=== PATIENT | female | born 1965 | race Caucasian/White ===

== ENCOUNTER → 2023-02-22 | Outpatient (CLI) | payer BC, SELFPAY ==
[2023-02-22 15:20] LABS: Absolute Lymphocyte Count 1.83 X10^3/uL (0.83-4.51); Absolute Neutrophil Count 2.2 X10^3/uL (2.0-7.7); Basophil# 0.06 X10^3/uL; Basophil% 1.3 % (0-1); Eosinophils% 2.2 % (0-5); Hematocrit 39.9 % (37-47); Hemoglobin 12.8 g/dL (12.0-15.0); Lymphocyte # 1.83 X10^3/ul (0.83-4.51); Lymphocyte % 40.1 % (19-41); Mean Corp Hgb Conc 32.1 g/dL (32-36); Mean Corpuscular Hgb 29.7 pg (27.0-32.0); Mean Corpuscular Volume 92.6 fL (81-99); Mean Platelet Vol. 10.6 fl (6.2-12.0); Monocyte# 0.34 X10^3/uL; Monocyte% 7.5 % (0-10); NRBC Flagged by Analyzer 0 % (0-5); Neutrophil # 2.22 X10^3/uL (2.7-7.7); Neutrophil % 48.7 % (47-70); Platelet Count 317 K/mm3 (150-450); RBC Distribution Width CV 12.8 % (11.6-14.6); RBC Distribution Width SD 43.8 fl (35.1-43.9); Red Blood Count 4.31 M/mm3 (4.2-5.4); White Blood Count 4.6 K/mm3 (4.4-11.0)
[2023-02-22 16:00] LABS: ALB/GLOB Ratio 1.3 RATIO (0.9-2.4); AST(SGOT) 24 U/L (15-37); Alanine Aminotransfer ALT/SGPT 26 U/L (13-56); Albumin, Serum 4.1 g/dL (3.2-5.0); Alkaline Phosphatase 56 U/L (45-117); Anion Gap 5 (5-15); BUN 20 mg/dL (7-18); BUN/Creat Ratio 24.3 RATIO (10-20); Calcium,Total 9.1 mg/dL (8.5-10.1); Chloride 108 mmol/L (98-107); Cholesterol 214 mg/dL (200); Creatinine, Serum 0.82 mg/dL (0.55-1.02); EST Glomerular Filtration Rate 76 mL/min (>60); Est Glom Filt Rate - Afr Amer 92 mL/min (>60); Globulin 3.2 g/dL (2.2-4.2); Glucose 88 mg/dL (74-106); High Density Lipoprotein 76 mg/dL; Potassium 3.8 mmol/L (3.5-5.1); Protein, Total 7.3 g/dL (6.4-8.2); Sodium Level 140 mmol/L (136-145); Thyroid Stim Hormone (TSH) 1.83 uIU/mL (0.358-3.74); Triglycerides 49 mg/dL; Very Low Density Lipoprotein 10 mg/dL (5-40)
[2023-02-22 16:05] LABS: Hemoglobin A1c 5.5 % (3.8-5.6)
== END | disposition home or self-care (01) ==
LOC: MFPLAB 11:57
PROVIDERS: Visit Provider Family Medicine
DX: Z13.0 Encounter for screening for diseases of the blood and blood-forming organs and certain disorders involving the immune mechanism (principal); Z13.228 Encounter for screening for other metabolic disorders; Z13.1 Encounter for screening for diabetes mellitus; Z13.220 Encounter for screening for lipoid disorders
CPT/HCPCS: 36415; 80053; 80061; 83036; 84443; 85025

== ENCOUNTER → 2023-03-18 | Outpatient (CLI) | payer SELFPAY ==
--- NOTE | 2023-03-18 13:13 | CT_ITS ---
STUDY: CT CHEST WITHOUT CONTRAST REASON FOR EXAM: Female, 57 years old. FAM HS CAD RADIATION DOSAGE (If Supplied By Facility): CTDIvol = ( 12.19 ) mGy, DLP = ( 219.42 ) mGycm TECHNIQUE: Transaxial imaging was performed without the administration of intravenous contrast material. Cardiac ovary examination. Individualized dose optimization techniques were used for this CT. COMPARISON: No relevant priors. FINDINGS: CHEST The lungs are normal. There is no demonstrated pleural abnormality. There are minimal calcifications of the coronary arteries. There are multiple small lymph nodes within the mediastinum, which are normal in size and morphology most compatible with reactive lymph hyperplasia. Normal hilar regions. Normal unenhanced pulmonary arteries. Normal aorta arch and descending thoracic aorta. Normal osseous structures. There is no demonstrated abnormality of the visualized upper abdomen. CT/Limited Chest CT Cardiac Only IMPRESSION: Minimal degree of coronary artery calcification. Electronically Signed: Jorgito Newton MD at 13:59 EDT ,
--- NOTE | 2023-03-18 16:33 | CA.SCORE ---
Calcium Scoring Date of Study:: 03/18/23 Coronary Calcium Scoring: High-resolution Computed Tomographic imaging of the chest was performed on [03/18/2023], with particular attention paid to the coronary arteries. Images from the examination were analyzed for the presence and extent of coronary artery calcification , using coronary calcium quantification software. The patient tolerated the procedure well and there were no complications. The results of the coronary calcification analysis are provided below. Findings Coronary Artery Left Main (LM): 0 Left Anterior Descending (LAD): 0 Left Circumflex (LCX): 0 Right Coronary Artery (RCA): 0 Total Agatston Score: 0 Percentile Rankinth Calcium Scoring Interpretation: Different methods to categorize the overall amount of coronary plaque. Overall amount CAC SIS Visual of coronary plaque P1 Mild -100 <2 1-2 vessels with mild amount of plaque P2 Moderate 101-300 3-4 1-2 vessels with moderate amount, 3 vessels with mild amount of plaque P3 Severe 301-999 5-7 3 vessels with moderate amount, 1 vessel with severe amount of plaque P4 Extensive >1000 >8 2-3 vessels with severe amount of plaque Conclusion: No significant atherosclerotic plaquing noted.
== END | disposition home or self-care (01) ==
LOC: CT 13:09
PROVIDERS: PCP Family Medicine; Referring Provider Family Medicine; Visit Provider Family Medicine
DX: Z82.49 Family history of ischemic heart disease and other diseases of the circulatory system (principal)
CPT/HCPCS: 75571; 76380

== ENCOUNTER → 2023-06-04 | Outpatient (CLI) | payer BC, SELFPAY ==
--- NOTE | 2023-06-04 11:56 | BI_ITS ---
MAMMOGRAPHY - BILATERAL SCREENING REASON FOR EXAM: Female, 57 years old. Routine annual screening examination. PERTINENT HISTORY: Non-contributory. Remote left breast biopsy. TECHNIQUE: Digital bilateral breast jada (3D mammographic acquisition) in the CC and MLO projections. 2-D mediolateral oblique (MLO) and craniocaudad (CC) views of both breasts were obtained. CAD: Full Field Digital Mammography with Computer Added Detection was performed. COMPARISON: Comparison is made with prior abdomen examination dated June 02, 2022. FINDINGS: Breast Composition: There are scattered areas of fibroglandular density. There are no dominant masses or suspicious calcifications. Stable small benign-appearing bilateral axillary lymph nodes. No other significant abnormalities are identified. There has been no significant change since the prior study. BI/SCRN MAMM (CAD)W/JADA BILAT IMPRESSION: Stable bilateral screening mammogram. Yearly follow-up mammogram recommended. (A) ASSESSMENT CATEGORY: BIRADS Category 2: Benign. A letter regarding these results will be sent to the patient by the facility within 30 days. Approximately 10% of breast cancers are not detected by mammography. A normal mammogram should not delay biopsy of a clinically suspicious abnormality. [id number] Electronically Signed: Jorgito Newton MD at 15:03 EDT ,
== END | disposition home or self-care (01) ==
PROVIDERS: PCP Family Medicine; Referring Provider Family Medicine; Visit Provider Family Medicine
DX: Z12.31 Encounter for screening mammogram for malignant neoplasm of breast (principal)
CPT/HCPCS: 77063; 77067

== ENCOUNTER → 2023-12-01 | Outpatient (CLI) | payer BC, SELFPAY ==
--- OUTSIDE RECORDS SUMMARY | 2023-12-01 12:44 | XMS RPT_ITS | CCD ---
Author Name Unknown Address [address] [place] [address] Organization [facility] Care Team Providers Care Nursery Hand Name Role Phone Unavailable Primary Care Provider Unavailabl e HASKAITLYN JOCELINE Referring Unavailable HASAN, JOCELINE Referring Unavailable NASR, TAOIST Referring Unavailable HASAN, JOCELINE Attending Unavailable HASAN, JOCELINE Referring Unavailable HASAN, JOCELINE Attending Unavailable NASR, TAOIST Referring Unavailable Allergies Allergy Classification Reported Allergen(s) Allergy Type Date of Onset Reaction(s) Facility (10 sources) Meperidine; Translations: [MEPERIDINE] Drug Allergy 11-22-2005 [facility] Medications Current Medications Medication Drug Class(es) Dates Sig (Normalized) Sig (Original) 1 ml denosumab 60 mg/ml prefilled syringe (3 sources) RANK Ligand Inhibitor Start: 09-02-2023 End: 10-02-2023 denosumab 60 mg injection (PROLIA) Completed/Discontinued Medications Medication Drug Class(es) Dates Sig (Normalized) Sig (Original) 1.56 ml abaloparatide 2 mg/ml pen injector (8 sources) Parathyroid Hormone-Related Peptide Analog Start: 05-06-2021 End: 08-03-2023 inject 80 ug by subcutaneous injection every twenty-four hours abaloparatide (TYMLOS) 80 mcg (3,120 mcg/1.56 mL) Inject 0.04 mL subcutaneously q 24 HR. 3.6 mL 3 03/04/2023 08/03/2023 Discontinued Problems Problem Classification Problem Date Documented Da te Episodic/Chronic Nutritional deficiencies (1 source) Vitamin D deficiency, unspecified; Translations: [Vitamin D deficiency] Onset: 11-26-2023 Chronic Osteoporosis (15 sources) Osteoporosis; Translations: [Age-related osteoporosis without current pathological fracture] Onset: 03-04-2023 Chronic Results Test Name Value Interpretation Reference Range Facil ity Vital Signs Date Time Vital Sign Value Performing Clinician Neftali reddy 03-04-2023 13:03-0400 Body height 167.6 cm Joceline Jade MD Work Phone: [facility] 03-04-2023 13:03-0400 Body weight 61.24 kg Joceline Jade MD Work Phone: [facility] 03-04-2023 13:03-0400 Diastolic blood pressure 76 mm[Hg] Joceline Jade MD Work Phone: [facility] 03-04-2023 13:03-0400 Heart rate 64 /min Joceline Jade MD Work Phone: [facility] 03-04-2023 13:03-0400 SaO2% (BldA) [Mass fraction] 99 % Joceline Jade MD Work Phone: [facility] 03-04-2023 13:03-0400 Systolic blood pressure 122 mm[Hg] Joceline Jade MD Work Phone: [facility] Encounters Encounter Date Encounter Type Care Provider Facility Start: 11-26-2023 End: 11-27-2023 ambulatory JOCELINE JADE Facility:[facility] Start: 11-25-2023 End: 11-25-2023 ambulatory JOCELINE YASMANY Facility:[facility] Start: 08-26-2023 End: 08-26-2023 ambulatory [facility] Facility:[facility] Start: 08-26-2023 End: 08-26-2023 Patient encounter procedure Nurse Ml Roman Work Phone: Endocrinology Procedures Date Procedure Procedure Detail Performing Clinician Start: 07-21-2023 Dxa bone density erin dy 1/> sites axial skel Joceline Jade MD Work Phone: Plan of Treatment Date Care Activity Detail Author Start: 05-18-2032 Urine microalbumin profile DTaP,Tdap,Td Vaccine (2 - Td or Tdap) [facility] Start: 07-23-2023 Influenza vaccination [facility] Start: 06-22-2023 End: 04-02-2024 DXA-AXIAL SKELETON DXA-AXIAL SKELETON Radiology Routine Osteoporosis without current pathological fracture, unspecified osteoporosis type Expected: 06/22/2023, Expires: 04/02/2024 [facility] Work Phone: Payers Date Payer Category Payer Unknown [employer] PPO OOS [id number] 2017-Present [phone] [address] [place] [address] PPO [id number] 2017 Unknown [id number] Social History Date Type Detail Facility Start: 03-04-2023 [facility] Start: 03-04-2023 Tobacco use and exposure Smoke less tobacco non-user [facility] Start: 1965 Sex Assigned At Not on file C [facility] Start: 03-04-2023 End: 08-26-2023 History of Social function [facility] Start: 03-04-2023 End: 08-26-2023 Tobacco use panel [facility] National Score (1-10 0), lower number is lower risk 64 [facility] Clinical Notes 03-04-2023 to 11-25-2023 Bertha Carnes RN - 08/26/2023 11:28 AM EDTTelephone Encounter - Joceline Jade MD - 08/03/2023 12:23 PM EDTTelephone Encounter - Joceline Jade MD - 08/03/2023 12:23 PM EDTPatient Instructions Note Date & Type Note Facility 11-25-2023 Note HNO ID: [id number] Author: JOCELINE JADE MD Service: ? Author Type: Physician Type: Progress Notes Filed: 11/25/2023 10:39 Note Text: OSTEOPOROSIS AND METABOLIC BONE DISEASE Chief Complaint: Osteoporosis HPI: She was dx in 2016, when she had a compression fracture in L1/l3 Last compression fracture (T9) was in Dec 2021. She moved here from [place] No fractures since last visit TREATMENTS: Medications: Tymlos 80 mcg daily She started Tymlos in summer 2020 and continued it until 2022 Current treatment: Prolia 60 mg Q 6 months Calcium: Supplement: Dose: 1000 mg Vitamin D: 2000 international unit(s) daily Multivitamin: No She takes turmeric, zinc, red yeats rice and collagen BONE DENSITY RESULTS: DXA- June 2022 OP RISK FACTORS: Height: loss: No Weight <127 lbs: No Calcium Intake: - Childhood: normal - Young adulthood: normal Menstrual history: 13 years Menopause at age: She had hysterectomy at age 39 for endometriosis HRT: No Current HRT: No history: , P: 0, Ab: 0 Fall history: No Fracture history: see above Family history of hip or spine fx: - mother: Yes, Hip fracture - grandmother: No and Unknown - sister: No MEDICATION RISK FACTORS: No Caffeine: 1 c/day Smoking History: Never smoked Alcohol Consumptions: occasional Exercise: moderate regular exercise program She does strengthen exercises for her back REVIEW OF SYSTEMS: Answers submitted by the patient for this visit: Core Review of Systems (Submitted on 11/18/2023) Fever : No Night sweats: No Recent unintentional weight change: No Nasal Congestion: No Hearing Loss: No Vision Disturbance: No A cough: No Difficulty Breathing?: No Chest pain: No Irregular heartbeat: No Leg Swelling: No Nausea: No Diarrhea: No Black tarry stools: No Difficulty Urinating?: No Awaken at Night More Than Once to Urinate?: No Joint pain or stiffness: No Muscle aches: No Leg or Foot Discomfort at Night?: No A rash: No Dizziness: No Headaches: No Memory Loss: No Seizures: No PAST MEDICAL HISTORY Diagnosis Date Osteoporosis PAST SURGICAL HISTORY Procedure Laterality Date HYSTERECTOMY HX Physical Exam: Blood pressure 127/81, pulse (!) 55, resp. rate 16, height 167.6 cm (5' 5.98 ), weight 60.7 kg (133 lb 13.1 oz), SpO2 99%. GENERAL: alert and oriented X 3, no acute distress EYES: conjunctiva and sclera normal. NECK: Neck supple, no adenopathy; thyroid symmetric, normal size HEART: RRR with normal S1 and S2 ,no murmurs LUNGS: Clear to auscultation.no wheezing LYMPH NODES: No cervical lymphadenopathy NEURO: Awake, alert and oriented x 3, no focal findings SKIN: Skin color, texture, turgor normal. No rashes or lesions. IMAGING: DXA-June 2023 LUMBAR SPINE: Bone mineral density (BMD) measured at L1-4 region of interest is 0.777 g/cm2. T-score = -2.5 Z-score = -1.1 Comments: None. LEFT HIP: BMD measured at femoral neck region of interest is 0.610 g/cm2. T-score = -2.2 Z-score = -0.9 Comments: None. IMPRESSION: The patient has Osteoporosis. She has had compression fractures. Her lumbar spine T-score is -2.5. Her hip T-score is -2.2. She has been treated with Tymlos. Vitamin D deficiency PLAN: She was on Tymlos from [id number] Subsequently, based on her T scores, I switched her to Prolia in Jul 2023 Update vitamin D level Also check calcium level Radiology: update Bone Density in June 2025 I will send patient a message in my chart once the lab results become available Return Visit:1 year Joceline Jade MD [facility] 08-26-2023 Nurse Note The patient is here for an injection of Prolia (1st injection) Dose: 60mg Route: Subcutaneous Lot # [id number] Expiration date: 07/22/2025 [facility]: [id number] Site: Left arm Dr. Jade present in clinic at time of injection. The date due for the next injection is in 6 months. On or after 02/25/2024. SEJAL: 03/04/2023 NOV: 11/25/2023 Insurance: [facility]-No PA Required. DX: M81.0 CPT: J0897 DXA: 07/21/2023 (T-Score -2.5 LS) Labs: 03/11/2023 Vit. D 27.8 Patient education was given by nurse. Patient tolerated injection well, in NAD and no reactions noted. Medication supplied by [facility] [employer]. Bertha Carnes RN documented in this encounter [facility] 08-03-2023 Miscellaneous Notes Patient will stop Tymlos end of this month CAM order placed for prolia- first dose to be administered next month Joceline Jade MD This patient gave consent to this Medical Advice Message and is aware that it may result in a bill to their insurance, as well as the possibility of receiving a bill for a copay and/or deductible. They are an established patient, but are not seeking information exclusively about a problem treated during an in person or video visit in the last seven days. I did not recommend an in person or video visit within seven days of my reply. See the [employer] message reply for my assessment and plan. I spent a total of 12 minutes reviewing the patient's prior medical records and current request for medical advice, prescribing medications or ordering tests (if applicable), replying to the patient, and documenting the encounter. Please review. Let me know if this patient will be starting Prolia. She will need to be notified that this will be an in office injection, not self administered. It is not FDA approved to be self administered. documented in this encounter [facility] 07-21-2023 Note HNO ID: [id number] Author: Aleksander Hudson RT(Alee) Service: ? Author Type: Technologist Type: Progress Notes Filed: 07/21/2023 9:15 AM Note Text: Radiology Service Progress Note PATIENT NAME: Brent Crowder DATE OF SERVICE: July 21, 2023 TIME: 9:04 AM PATIENT IDENTITY VERIFICATION COMPLETED USING TWO (2) IDENTIFIERS: Name and Date of confirmed by patient verbally. FALL SCREENING: Has the patient had 2 falls in the last year or 1 fall with injury or currently using an Ambulatory Assistive Device (Walker, Cane, Wheelchair, Crutches, etc.)? No PATIENT GENDER DATA: Female. status: : No status: NO. PATIENT RELEVANT IMPLANT DATA REVIEWED: Not Applicable RADIOLOGY DEPARTMENT: Bone Density PERIPHERAL IV DATA: Not applicable SIGNED BY: RT Daljit(R) July 21, 2023 9:04 AM [facility] 07-21-2023 History of Presen t illness Narrative Radiology Service Progress Note PATIENT NAME: Brent Crowder DATE OF SERVICE: July 21, 2023 TIME: 9:04 AM PATIENT IDENTITY VERIFICATION COMPLETED USING TWO (2) IDENTIFIERS: Name and Date of confirmed by patient verbally. FALL SCREENING: Has the patient had 2 falls in the last year or 1 fall with injury or currently using an Ambulatory Assistive Device (Walker, Cane, Wheelchair, Crutches, etc.)? No PATIENT GENDER DATA: Female. status: : No status: NO. PATIENT RELEVANT IMPLANT DATA REVIEWED: Not Applicable RADIOLOGY DEPARTMENT: Bone Density PERIPHERAL IV DATA: Not applicable SIGNED BY: RT Daljit(R) July 21, 2023 9:04 AM documented in this encounter [facility] 07-02-2023 Miscellaneous Notes Closed. documented in this encounter [facility] 07-02-2023 Miscellaneous Notes Closed. documented in this encounter [facility] 03-18-2023 Miscellaneous Notes Received a faxed notification from [employer] that patient has been APPROVED FOR TYMLOS. Effective: 03/13/23---03/13/24. Closed. documented in this encounter [facility] 03-04-2023 Note HNO ID: [id number] Author: Joceline Jade MD Service: ? Author Type: Physician Type: Progress Notes Filed: 03/04/2023 2:39 PM Note Text: OSTEOPOROSIS AND METABOLIC BONE DISEASE Gender: female Ethnicity: Age: [age] year old Referring Physician: Drew Corey [id number] [facility] [id number] Chief Complaint: Osteoporosis HPI: She was dx in 2016, when she had a compression fracture in L1/l3 Last compression fracture (T9) was in Dec 2021 She moved here from [place] TREATMENTS: Medications: Tymlos 80 mcg daily She started Tymlos in summer 2020. Calcium: Supplement: Dose: 1000 mg Vitamin D: No Multivitamin: No She takes turmeric, zinc, red yeats rice and collagen BONE DENSITY RESULTS: DXA- June 2022 OP RISK FACTORS: Height: loss: No Weight <127 lbs: No Calcium Intake: - Childhood: normal - Young adulthood: normal Menstrual history: 13 years Menopause at age: She had hysterectomy at age 39 for endometriosis HRT: No Current HRT: No history: , P: 0, Ab: 0 Fall history: No Fracture history: see above Family history of hip or spine fx: - mother: Yes, Hip fracture - grandmother: No and Unknown - sister: No MEDICATION RISK FACTORS: No Caffeine: 1 c/day Smoking History: Never smoked Alcohol Consumptions: occasional Exercise: moderate regular exercise program She does strengthen exercises for her back REVIEW OF SYSTEMS: Answers submitted by the patient for this visit: Endocrine Review of Systems (Submitted on 02/25/2023) Fatigue: Yes Night Sweats: No Recent Unintentional Weight Change: No Skin Color Changes: No Post-Nasal Drip: No Thyroid Pain (lower neck): No Trouble Swallowing: No Vision Disturbance: No Chest Pain: No Leg Swelling: No Blood Clots?: No Leg Pain while walking?: No Difficulty Breathing?: No Heartburn: No Nausea: No Vomiting?: No Diarrhea: No Constipation: No Abdominal Pain: No Bone Pain?: Yes Muscle Aches: No Muscle Weakness: No Joint Pain or Stiffness: Yes Headaches: No Dizziness: No Numbness?: No Urgency to Urinate?: No Increased Urination?: No Slow or Small Urine Stream?: No Are your menstrual cycles regular?: No Are your menstrual cycles irregular?: No Have your menstrual cycles stopped?: Yes Flushing?: No Hot Flashes?: No Increased Thirst: No Change in Body Hair?: No Cold Intolerance: No Heat Intolerance?: No PAST MEDICAL HISTORY Diagnosis Date Osteoporosis PAST SURGICAL HISTORY Procedure Laterality Date HYSTERECTOMY HX Medications: Present: Current Outpatient Medications Medication Sig abaloparatide (TYMLOS) 80 mcg (3,120 mcg/1.56 mL) Inject 80 mcg subcutaneously q 24 HR. No current facility-administered medications for this visit. Physical Exam: Blood pressure 122/76, pulse 64, height 167.6 cm (5' 6 ), weight 61.2 kg (135 lb), SpO2 99 %. GENERAL: alert and oriented X 3, no acute distress EYES: conjunctiva and sclera normal. NECK: Neck supple, no adenopathy; thyroid symmetric, normal size HEART: RRR with normal S1 and S2 ,no murmurs LUNGS: Clear to auscultation.no wheezing LYMPH NODES: No cervical lymphadenopathy NEURO: Awake, alert and oriented x 3, no focal findings SKIN: Skin color, texture, turgor normal. No rashes or lesions. IMPRESSION: The patient has Osteoporosis. She has had compression fractures. Her lumbar spine T-score is -2.6. Her hip T-score is -2.7. She has been treated with Tymlos. PLAN: I will request her outside records Medication: Continue Tymlos until summer 2022 Lab: CALCIUM TOTAL BLD CREATININE BLOOD VITAMIN D25 HYDROXY Patient will notify via me via my chart to determine if PCP checked these above mentioned bio-chemical evaluation. Radiology: update Bone Density in June 2023 Based on the results, will switch either to Bisphosphonates or Prolia Return Visit: June 2023 Joceline Jade MD [facility] 03-04-2023 Miscellaneous Notes Hard Copy RX for Tymlos faxed to [facility] at , Transmission ok [facility] CLOSED documented in this encounter [facility] 03-04-2023 Instructions Joceline Jade MD - 03/04/2023 1:35 PM EDT Please see if you had vitamin D and BMP (kidney function) Notify me via my chart. Do DXA scan in June 2023 Follow up with me in June or Jul 2023 documented in this encounter [facility] 03-04-2023 History of Presen t illness Narrative OSTEOPOROSIS AND METABOLIC BONE DISEASE Gender: female Ethnicity: Age: [age] year old Referring Physician: Drew Corey [address] [facility] [address] Chief Complaint: Osteoporosis HPI: She was dx in 2016, when she had a compression fracture in L1/l3 Last compression fracture (T9) was in Dec 2021 She moved here from [place] TREATMENTS: Medications: Tymlos 80 mcg daily She started Tymlos in summer 2020. Calcium: Supplement: Dose: 1000 mg Vitamin D: No Multivitamin: No She takes turmeric, zinc, red yeats rice and collagen BONE DENSITY RESULTS: DXA- June 2022 OP RISK FACTORS: Height: loss: No Weight <127 lbs: No Calcium Intake: - Childhood: normal - Young adulthood: normal Menstrual history: 13 years Menopause at age: She had hysterectomy at age 39 for endometriosis HRT: No Current HRT: No history: , P: 0, Ab: 0 Fall history: No Fracture history: see above Family history of hip or spine fx: - mother: Yes, Hip fracture - grandmother: No and Unknown - sister: No MEDICATION RISK FACTORS: No Caffeine: 1 c/day Smoking History: Never smoked Alcohol Consumptions: occasional Exercise: moderate regular exercise program She does strengthen exercises for her back REVIEW OF SYSTEMS: Answers submitted by the patient for this visit: Endocrine Review of Systems (Submitted on 02/25/2023) Fatigue: Yes Night Sweats: No Recent Unintentional Weight Change: No Skin Color Changes: No Post-Nasal Drip: No Thyroid Pain (lower neck): No Trouble Swallowing: No Vision Disturbance: No Chest Pain: No Leg Swelling: No Blood Clots?: No Leg Pain while walking?: No Difficulty Breathing?: No Heartburn: No Nausea: No Vomiting?: No Diarrhea: No Constipation: No Abdominal Pain: No Bone Pain?: Yes Muscle Aches: No Muscle Weakness: No Joint Pain or Stiffness: Yes Headaches: No Dizziness: No Numbness?: No Urgency to Urinate?: No Increased Urination?: No Slow or Small Urine Stream?: No Are your menstrual cycles regular?: No Are your menstrual cycles irregular?: No Have your menstrual cycles stopped?: Yes Flushing?: No Hot Flashes?: No Increased Thirst: No Change in Body Hair?: No Cold Intolerance: No Heat Intolerance?: No PAST MEDICAL HISTORY Diagnosis Date Osteoporosis PAST SURGICAL HISTORY Procedure Laterality Date HYSTERECTOMY HX Medications: Present: Current Outpatient Medications Medication Sig abaloparatide (TYMLOS) 80 mcg (3,120 mcg/1.56 mL) Inject 80 mcg subcutaneously q 24 HR. No current facility-administered medications for this visit. Physical Exam: Blood pressure 122/76, pulse 64, height 167.6 cm (5' 6 ), weight 61.2 kg (135 lb), SpO2 99 %. GENERAL: alert and oriented X 3, no acute distress EYES: conjunctiva and sclera normal. NECK: Neck supple, no adenopathy; thyroid symmetric, normal size HEART: RRR with normal S1 and S2 ,no murmurs LUNGS: Clear to auscultation.no wheezing LYMPH NODES: No cervical lymphadenopathy NEURO: Awake, alert and oriented x 3, no focal findings SKIN: Skin color, texture, turgor normal. No rashes or lesions. IMPRESSION: The patient has Osteoporosis. She has had compression fractures. Her lumbar spine T-score is -2.6. Her hip T-score is -2.7. She has been treated with Tymlos. PLAN: I will request her outside records Medication: Continue Tymlos until summer 2022 Lab: CALCIUM TOTAL BLD CREATININE BLOOD VITAMIN D25 HYDROXY Patient will notify via me via my chart to determine if PCP checked these above mentioned bio-chemical evaluation. Radiology: update Bone Density in June 2023 Based on the results, will switch either to Bisphosphonates or Prolia Return Visit: June 2023 Joceline Jade MD documented in this encounter [facility] Diagnosis Osteoporosis without current pathological fracture, unspecified osteoporosis type- Primary [facility]* Diagnosis Age-related osteoporosis without current pathological fracture- Primary Senile osteoporosis [facility]* Diagnosis Osteoporosis without current pathological fracture, unspecified osteoporosis type- Primary [facility] Diagnosis Osteoporosis without current pathological fracture, unspecified osteoporosis type documented in this encounter [facility] Medications Administered Section Inactive Administered Medications - up to 3 most recent administrations Medication Order MAR Action Action Date Dose Rate Site denosumab 60 mg injection (PROLIA) 60 mg, SUBCUTANEOUS, ONCE (UP TO 30 DAYS AMB), 1 dose, On Malaika 08/26/23 at 1100, Allow To Come To Room Temperature Before Administration. REFRIGERATE Given 08/26/2023 11:36 AM EDT 60 mg Arm, Left Summary Purpose Family History No Family History Records Found Advance Directives No Advanced Directives Records Found Additional Source Comments Source Comments (unrecognize d section and content) In the event this informatio n is protected by the Federal Confidentiality of Alcohol and Drug Abuse Patient Records regulations: The Federal rules restrict any use of the information to criminally investigate or prosecute any alcohol or drug abuse patient.[facility] the event this information is protected by the Federal Confidentiality of Alcohol and Drug Abuse Patient Records regulations: The Federal rules restrict any use of the information to criminally investigate or prosecute any alcohol or drug abuse patient.[facility] the event this information is protected by the Federal Confidentiality of Alcohol and Drug Abuse Patient Records regulations: The Federal rules restrict any use of the information to criminally investigate or prosecute any alcohol or drug abuse patient.[facility] Hospital[facility] the event this information is protected by the Federal Confidentiality of Alcohol and Drug Abuse Patient Records regulations: The Federal rules restrict any use of the information to criminally investigate or prosecute any alcohol or drug abuse patient.[facility] the event this information is protected by the Federal Confidentiality of Alcohol and Drug Abuse Patient Records regulations: The Federal rules restrict any use of the information to criminally investigate or prosecute any alcohol or drug abuse patient.[facility] the event this information is protected by the Federal Confidentiality of Alcohol and Drug Abuse Patient Records regulations: The Federal rules restrict any use of the information to criminally investigate or prosecute any alcohol or drug abuse patient.[facility] the event this information is protected by the Federal Confidentiality of Alcohol and Drug Abuse Patient Records regulations: The Federal rules restrict any use of the information to criminally investigate or prosecute any alcohol or drug abuse patient.[facility] the event this information is protected by the Federal Confidentiality of Alcohol and Drug Abuse Patient Records regulations: The Federal rules restrict any use of the information to criminally investigate or prosecute any alcohol or drug abuse patient.[facility] Reason for Visit (unrecogniz ed section and content) Reason Comments Tymos RX Faxed Reason Comments PA--TYMLOS Reason Comments Prolia Injection INFORMATION SOURCE (unrecogn ized section and content) FOR RECORDS PERTAINING TO PATIENTS WHO ARE OR HAVE BEEN ENROLLED IN A CHEMICAL DEPENDENCY/SUBSTANCEABUSE PROGRAM, SOME INFORMATION MAY BE OMITTED. This clinical summary was aggregated from multiple sources. Caution should be exercised in using it in the provision of clinical care. This summary normalizes information from multiple sources, and as a consequence, information in this document may materially change the coding, format and clinical context of patient data. In addition, data may be omitted in some cases. CLINICAL DECISIONS SHOULD BE BASED ON THE PRIMARY CLINICAL RECORDS. [employer] provides no warranty or guarantee of the accuracy or completeness of information in this document.
[2023-12-01 15:37] LABS: Absolute Lymphocyte Count 2.31 X10^3/uL (0.83-4.51); Absolute Neutrophil Count 2.3 X10^3/uL (2.0-7.7); Basophil# 0.05 X10^3/uL; Eosinophil# 0.18 X10^3/uL; Eosinophils% 3.5 % (0-5); Hematocrit 41.2 % (37-47); Hemoglobin 12.9 g/dL (12.0-15.0); Lymphocyte # 2.31 X10^3/ul (0.83-4.51); Lymphocyte % 44.5 % (19-41); Mean Corp Hgb Conc 31.3 g/dL (32-36); Mean Corpuscular Hgb 28.9 pg (27.0-32.0); Mean Corpuscular Volume 92.4 fL (81-99); Monocyte# 0.37 X10^3/uL; Monocyte% 7.1 % (0-10); NRBC Flagged by Analyzer 0 % (0-5); Neutrophil # 2.27 X10^3/uL (2.7-7.7); Neutrophil % 43.7 % (47-70); Platelet Count 333 K/mm3 (150-450); RBC Distribution Width CV 13.1 % (11.6-14.6); RBC Distribution Width SD 44.1 fl (35.1-43.9); Red Blood Count 4.46 M/mm3 (4.2-5.4); White Blood Count 5.2 K/mm3 (4.4-11.0)
[2023-12-01 16:17] LABS: ALB/GLOB Ratio 1.2 RATIO (0.9-2.4); AST(SGOT) 23 U/L (15-37); Alanine Aminotransfer ALT/SGPT 24 U/L (13-56); Alkaline Phosphatase 41 U/L (45-117); Anion Gap 4 (5-15); BUN 21 mg/dL (7-18); BUN/Creat Ratio 30.5 RATIO (10-20); Calcium,Total 9.7 mg/dL (8.5-10.1); Chloride 107 mmol/L (98-107); Creatinine, Serum 0.69 mg/dL (0.55-1.02); EST Glomerular Filtration Rate 93 mL/min (>60); Est Glom Filt Rate - Afr Amer 112 mL/min (>60); Globulin 3.4 g/dL (2.2-4.2); Glucose 85 mg/dL (74-106); Lipase 27 U/L (13-75); Potassium 4.1 mmol/L (3.5-5.1); Protein, Total 7.4 g/dL (6.4-8.2); Sodium Level 141 mmol/L (136-145)
== END | disposition home or self-care (01) ==
PROVIDERS: PCP Family Medicine; Referring Provider Family Medicine; Visit Provider Family Medicine
DX: R10.11 Right upper quadrant pain (principal)
CPT/HCPCS: 36415; 80053; 83690; 85025

== ENCOUNTER → 2023-12-06 | Outpatient (CLI) | payer BC, SELFPAY ==
--- NOTE | 2023-12-06 09:49 | US_ITS ---
STUDY: ABDOMINAL ULTRASOUND - RIGHT UPPER QUADRANT REASON FOR VISIT: Female, 57 years old RUQ abdominal. Pain and nausea. TECHNIQUE: Ultrasound evaluation of the right upper quadrant was performed with real-time and static reed-scale imaging. TECHNICAL QUALITY: Adequate. COMPARISON: None. FINDINGS: Liver: The liver measures 16.2 cm. There is normal echogenicity of the liver. The bile ducts are within normal limits. There is hepatic color flow. The direction of portal flow is hepatopetal. There is no demonstrated mass lesion. Gallbladder: Normal distended gallbladder. The gallbladder wall measures 1.3 mm. There is a negative sonographic Hendricks''s sign. There is no pericholecystic fluid. There are multiple echogenic structures within the gallbladder, consistent with multiple gallstones. Common Bile Duct (C.B.D.): The common bile duct measures 4.8 mm. Pancreas: Normal size of the head, body and tail of the pancreas. There is normal echogenicity of the pancreas. There is no demonstrated pancreatic mass or cyst. Right Kidney: Normal size of the right kidney. The right kidney measures 9.5 cm x 4.2 cm x 3.5 cm. There is thinning of the renal cortex. The right cortex measures 0.9 cm. There is no demonstrated renal mass or cyst. There is no right hydronephrosis. US/Abdomen Limited IMPRESSION: Multiple gallstones. Electronically Signed: Jorgito Newton MD at 15:28 EST ,
--- OUTSIDE RECORDS SUMMARY | 2023-12-06 10:12 | XMS RPT_ITS | CCD ---
Author Name Unknown Address [address] [facility] [address] [place] [address] Organization [facility] Care Team Providers Care Rn Forensic Name Role Phone Unavailable Primary Care Provider Unavailabl e HASKAITLYN JOCELINE Referring Unavailable HASAN, JOCELINE Referring Unavailable NASR, MORMONISM Referring Unavailable HASAN, JOCELINE Attending Unavailable HASAN, JOCELINE Referring Unavailable HASAN, JOCELINE Attending Unavailable NASR, MORMONISM Referring Unavailable Allergies Allergy Classification Reported Allergen(s) Allergy Type Date of Onset Reaction(s) Facility (10 sources) Meperidine; Translations: [MEPERIDINE] Drug Allergy 11-22-2005 [facility] Medications Current Medications Medication Drug Class(es) Dates [...] 167.6 cm Joceline Jade MD Work Phone: [facility] 03-04-2023 13:03-0400 Body weight 61.24 kg Joceline Jade MD Work Phone: [facility] 03-04-2023 13:03-0400 Diastolic blood pressure 76 mm[Hg] Joceline Jade MD Work Phone: [facility] 03-04-2023 13:03-0400 Heart rate 64 /min Joceline Jade MD Work Phone: [facility] 03-04-2023 13:03-0400 SaO2% (BldA) [Mass fraction] 99 % Joceline Jade MD Work Phone: [facility] 03-04-2023 13:03-0400 Systolic blood pressure 122 mm[Hg] Joceline Jade MD Work Phone: [facility] Encounters Encounter Date Encounter Type Care Provider Facility Start: 11-26-2023 End: 11-27-2023 ambulatory JOCELINE JADE Facility:[facility] Start: 11-25-2023 End: 11-25-2023 ambulatory JOCELINE YASMANY Facility:[facility] Start: 08-26-2023 End: 08-26-[address] [facility] Facility:[facility] Start: 08-26-2023 End: 08-26-2023 Patient encounter procedure Nurse Ml Roman Work Phone: Endocrinology Procedures Date Procedure Procedure Detail Performing Clinician Start: 07-21-2023 Dxa bone density erin dy 1/> sites axial skel Joceline Jade MD Work Phone: Plan of Treatment Date Care Activity Detail Author Start: 05-18-2032 Urine microalbumin profile DTaP,Tdap,Td Vaccine (2 - Td or Tdap) [facility] Start: 07-23-2023 Influenza vaccination [facility] Start: 06-22-2023 End: 04-02-2024 DXA-AXIAL SKELETON DXA-AXIAL SKELETON Radiology Routine Osteoporosis without current pathological fracture, unspecified osteoporosis type Expected: 06/22/2023, Expires: 04/02/2024 [facility] Work Phone: Payers Date Payer Category Payer Unknown [employer] PPO OOS [id number] 2017-Present [phone] [address] [place] [address] PPO [id number] 2017 Unknown [id number] Social History Date Type Detail Facility Start: [facility]04[facility] Start: 03-04-2023 Tobacco use and exposure Smoke less tobacco non-user [facility] Start: 1965 Sex Assigned At Not on file [facility] Start: 03-04-2023 End: 08-26-2023 History of Social function [facility] Start: 03-04-2023 End: 08-26-2023 Tobacco use panel [facility] National Score (1-10 0), lower number is lower risk 64 [facility] Clinical Notes 03-04-2023 to 11-25-2023 Bertha Carnes RN - 08/26/2023 11:28 AM EDTTelephone Encounter - Joceline Jade MD - 08/03/2023 12:23 PM EDTTelephone Encounter - Joceline Jade MD - 08/03/2023 12:23 PM EDTPatient Instructions Note Date & Type Note Facility 11-25-2023 Note HNO ID: [id number] Author: JOCELINE JADE MD Service: ? Author Type: Physician Type: Progress Notes Filed: 11/25/2023 10:39 Note Text: OSTEOPOROSIS AND METABOLIC BONE DISEASE Chief Complaint: Osteoporosis HPI: She was dx in 2016, when she had a compression fracture in L1/l3 Last compression fracture (T9) was in Dec 2021. She moved here from [place] No fractures since last visit TREATMENTS: Medications: [...] deficiency PLAN: She was on Tymlos from 9581-6789 Subsequently, based on her T scores, I switched her to Prolia in Jul 2023 Update vitamin D level Also check calcium level Radiology: update Bone Density in June 2025 I will send patient a message in my chart once the lab results become available Return Visit:1 year Joceline Jade MD [facility] 08-26-2023 Nurse Note The patient is here for an injection of Prolia (1st injection) Dose: 60mg Route: Subcutaneous Lot # [id number] Expiration date: 07/22/2025 [facility]: [id number] Site: Left arm Dr. Jade present in clinic at time of injection. The date due for the next injection is in 6 months. On or after 02/25/2024. SEJAL: 03/04/2023 NOV: 11/25/2023 Insurance: [facility]-No PA Required. DX: M81.0 CPT: J0897 DXA: 07/21/2023 (T-Score -2.5 LS) Labs: 03/11/2023 Vit. D 27.8 Patient education was given by nurse. Patient tolerated injection well, in NAD and no reactions noted. Medication supplied by [facility] [employer]. Bertha Carnes RN documented in this encounter [facility] 08-03-2023 Miscellaneous Notes Patient will stop Tymlos [...] seven days of my reply. See the Jaree message reply for my assessment and plan. [...] be self administered. documented in this encounter [facility] 07-21-2023 Note HNO ID: [id number] Author: Aleksander Hudson RT(Alee) Service: ? Author [...] RT Daljit(R) July 21, 2023 9:[address] [facility] 07-21-2023 History of Presen t illness [...] 2023 9:04 AM documented in this encounter [facility] 07-02-2023 Miscellaneous Notes Closed. documented in this encounter [facility] 07-02-2023 Miscellaneous Notes Closed. documented in this encounter [facility] 03-18-2023 Miscellaneous Notes Received a faxed notification from [employer] that patient has been APPROVED FOR TYMLOS. Effective: 03/13/23---03/13/24. Closed. documented in this encounter [facility] 03-04-2023 Note HNO ID: [id number] Author: Joceline Jade MD Service: ? Author Type: Physician Type: Progress Notes Filed: 03/04/2023 2:39 PM Note Text: OSTEOPOROSIS AND METABOLIC BONE DISEASE Gender: female Ethnicity: Age: [age] year old Referring Physician: Drew Corey [address] [facility] [address] Chief Complaint: Osteoporosis HPI: She was dx in 2016, when she had a compression fracture in L1/l3 Last compression fracture (T9) was in Dec 2021 She moved here from [place] TREATMENTS: Medications: Tymlos 80 mcg daily She [...] Return Visit: June 2023 Joceline Jade MD [facility] 03-04-2023 Miscellaneous Notes Hard Copy RX for Tymlos faxed to [facility] at , Transmission ok [facility] CLOSED documented in this encounter [facility] 03-04-2023 Instructions Joceline Jade MD - 03/04/2023 1:35 PM EDT Please see if you had vitamin D and BMP (kidney function) Notify me via my chart. Do DXA scan in June 2023 Follow up with me in June or Jul 2023 documented in this encounter [facility] 03-04-2023 History of Presen t illness Narrative OSTEOPOROSIS AND METABOLIC BONE DISEASE Gender: female Ethnicity: Age: [age] year old Referring Physician: Drew Corey [address] [facility] [address] Chief Complaint: Osteoporosis HPI: She was dx in 2016, when she had a compression fracture in L1/l3 Last compression fracture (T9) was in Dec 2021 She moved here from [place] TREATMENTS: Medications: Tymlos 80 mcg daily She [...] Joceline Jade MD documented in this encounter [facility] Diagnosis Osteoporosis without current pathological fracture, unspecified osteoporosis type- Primary [facility] Diagnosis Age-related osteoporosis without current pathological fracture- Primary Senile osteoporosis [facility]* Diagnosis Osteoporosis without current pathological fracture, unspecified osteoporosis type- Primary [facility]* Diagnosis Osteoporosis without current pathological fracture, unspecified osteoporosis type documented in this encounter [facility] Medications Administered Section Inactive Administered Medications - [...] or prosecute any alcohol or drug abuse patient.[facility] the event this information is protected by the Federal Confidentiality of Alcohol and Drug Abuse Patient Records regulations: The Federal rules restrict any use of the information to criminally investigate or prosecute any alcohol or drug abuse patient.[facility] Administration[facility] the event this information is protected by the Federal Confidentiality of Alcohol and Drug Abuse Patient Records regulations: The Federal rules restrict any use of the information to criminally investigate or prosecute any alcohol or drug abuse patient.[facility] AdministrationIn the event this information is protected by the Federal Confidentiality of Alcohol and Drug Abuse Patient Records regulations: The Federal rules restrict any use of the information to criminally investigate or prosecute any alcohol or drug abuse patient.[facility] AdministrationIn the event this information is protected by the Federal Confidentiality of Alcohol and Drug Abuse Patient Records regulations: The Federal rules restrict any use of the information to criminally investigate or prosecute any alcohol or drug abuse patient.[facility] AdministrationIn the event this information is protected by the Federal Confidentiality of Alcohol and Drug Abuse Patient Records regulations: The Federal rules restrict any use of the information to criminally investigate or prosecute any alcohol or drug abuse patient.[facility] AdministrationIn the event this information is protected by the Federal Confidentiality of Alcohol and Drug Abuse Patient Records regulations: The Federal rules restrict any use of the information to criminally investigate or prosecute any alcohol or drug abuse patient.[facility] AdministrationIn the event this information is protected by the Federal Confidentiality of Alcohol and Drug Abuse Patient Records regulations: The Federal rules restrict any use of the information to criminally investigate or prosecute any alcohol or drug abuse patient.[facility] Reason for Visit (unrecogniz ed section and [...] BE BASED ON THE PRIMARY CLINICAL RECORDS. [employer] provides no warranty or guarantee of the accuracy or completeness of information in this document.
== END | disposition home or self-care (01) ==
LOC: US 09:48
PROVIDERS: PCP Family Medicine; Referring Provider Family Medicine; Visit Provider Family Medicine
DX: R10.11 Right upper quadrant pain (principal)
CPT/HCPCS: 76705

== ENCOUNTER 2024-01-31 07:26 | Day surgery (SDC) | payer BC, SELFPAY ==
--- NOTE | 2024-01-25 09:42 | EKG12_ITS ---
Test Reason : PRE OP Blood Pressure : / mmHG Vent. Rate : 060 BPM Atrial Rate : 060 BPM P-R Int : 122 ms QRS Dur : 100 ms QT Int : 426 ms P-R-T Axes : 026 073 081 degrees QTc Int : 426 ms Normal sinus rhythm Normal ECG Confirmed by Elton Georges ([id number]), production editor PUSHPA ESPINO ([id number]) on 01/25/2024 2:19:18 PM Referred By: Darío Miller Confirmed By:Elton Georges
[2024-01-25 10:06] LABS: Hemoglobin 12.7 g/dL (12.0-15.0); Mean Corp Hgb Conc 32.6 g/dL (32-36); Mean Platelet Vol. 10.1 fl (6.2-12.0); Platelet Count 313 K/mm3 (150-450); RBC Distribution Width CV 12.9 % (11.6-14.6); RBC Distribution Width SD 43.4 fl (35.1-43.9); Red Blood Count 4.24 M/mm3 (4.2-5.4); White Blood Count 4.6 K/mm3 (4.4-11.0)
[2024-01-25 10:39] LABS: Anion Gap 6 (5-15); BUN 19 mg/dL (7-18); BUN/Creat Ratio 25.6 RATIO (10-20); Calcium,Total 9.1 mg/dL (8.5-10.1); Chloride 109 mmol/L (98-107); Creatinine, Serum 0.74 mg/dL (0.55-1.02); EST Glomerular Filtration Rate 85 mL/min (>60); Est Glom Filt Rate - Afr Amer 103 mL/min (>60); Glucose 74 mg/dL (74-106); Potassium 3.9 mmol/L (3.5-5.1); Sodium Level 145 mmol/L (136-145)
[2024-01-31] VITALS (9 sets, daily range): BP systolic 113–139; BP diastolic 64–85; PULSE 49–86; RESP 16–18; TEMP 36.3–37.1; O2SAT 95–100; BMI 21.9
--- OUTSIDE RECORDS SUMMARY | 2024-01-31 07:41 | XMS RPT_ITS | CCD ---
Author Name Unknown Address [address] [place] [address] Organization [facility] Care Team Providers Care Mortgage Accounting Clerk Name Role Phone Unavailable Primary Care Provider Unavailabl e HASKAITLYN JOCELINE Referring Unavailable HASAN, JOCELINE Referring Unavailable NASR, ISLAM Referring Unavailable HASAN, JOCELINE Attending Unavailable HASAN, JOCELINE Referring Unavailable HASAN, JOCELINE Attending Unavailable NASR, ISLAM Referring Unavailable Allergies Allergy Classification Reported Allergen(s) Allergy Type Date of Onset Reaction(s) Facility (10 sources) Meperidine; Translations: [MEPERIDINE] Drug Allergy 11-22-2005 [facility] Medications Current Medications Medication Drug Class(es) [...] 167.6 cm Joceline Jade MD Work Phone: [facility] 03-04-2023 13:03-0400 Body weight 61.24 kg Joceline Jade MD Work Phone: [facility] 03-04-2023 13:03-0400 Diastolic blood pressure 76 mm[Hg] Joceline Jade MD Work Phone: [facility] 03-04-2023 13:03-0400 Heart rate 64 /min Joceline Jade MD Work Phone: [facility] 03-04-2023 13:03-0400 SaO2% (BldA) [Mass fraction] 99 % Joceline Jade MD Work Phone: [facility] 03-04-2023 13:03-0400 Systolic blood pressure 122 mm[Hg] Joceline Jade MD Work Phone: [facility] Encounters Encounter Date Encounter Type Care Provider Facility Start: 11-26-2023 End: 11-27-2023 ambulatory JOCELINE JADE Facility:[facility] Start: 11-25-2023 End: 11-25-2023 ambulatory JOCELINE YASMANY Facility:[facility] Start: 08-26-2023 End: 08-26-2023 ambulatory [facility] Facility:[facility] Start: 08-26-2023 End: 08-26-2023 Patient encounter procedure Nurse Ml Roman Work Phone: Endocrinology Procedures Date Procedure Procedure Detail Performing Clinician Start: 07-21-2023 Dxa bone density erin dy 1/> sites axial skel Joceline Jade MD Work Phone: Plan of Treatment Date Care Activity Detail Author Start: 05-18-2032 Urine microalbumin profile DTaP,Tdap,Td Vaccine (2 - Td or Tdap) [facility] Start: 07-23-2023 Influenza vaccination [facility] Start: 06-22-2023 End: 04-02-2024 DXA-AXIAL SKELETON DXA-AXIAL SKELETON Radiology Routine Osteoporosis without current pathological fracture, unspecified osteoporosis type Expected: 06/22/2023, Expires: 04/02/2024 [facility] Work Phone: Payers Date Payer Category Payer Unknown [employer] PPO OOS [id number] 2017-Present [phone] [address] [place] [address] PPO [id number] 2017 Unknown [id number] Social History Date Type Detail Facility [facility]: [facility] Start: 03-04-2023 Tobacco use and exposure Smoke less tobacco non-user [facility] Start: 1965 Sex Assigned At Not on file [facility] Start: 03-04-2023 End: 08-26-2023 History of Social function [facility] Start: 03-04-2023 End: 08-26-2023 Tobacco use panel [facility] National Score (1-10 0), lower number is lower risk 63 [facility] Clinical Notes 03-04-2023 to 11-25-2023 Bertha Carnes RN - 08/26/2023 11:28 AM EDTTelephone Encounter - Joceline Jade MD - 08/03/2023 12:23 PM EDTTelephone Encounter - Joceline aJde MD - 08/03/2023 12:23 PM EDTPatient Instructions Note Date & Type Note Facility 11-25-2023 Note HNO ID: [id number] Author: JOCELINE JADE MD Service: ? Author Type: Physician Type: Progress Notes Filed: 11/25/2023 10:39 Note Text: OSTEOPOROSIS AND METABOLIC BONE DISEASE Chief Complaint: Osteoporosis HPI: She was dx in 2016, when she had a compression fracture in L1/l3 Last compression fracture (T9) was in Dec 2021. She moved here from [place] No fractures since last visit TREATMENTS: Medications: [...] deficiency PLAN: She was on Tymlos from 5133-3897 Subsequently, based on her T scores, I switched her to Prolia in Jul 2023 Update vitamin D level Also check calcium level Radiology: update Bone Density in June 2025 I will send patient a message in my chart once the lab results become available Return Visit:1 year Joceline Jade MD [facility] 08-26-2023 Nurse Note The patient is here for an injection of Prolia (1st injection) Dose: 60mg Route: Subcutaneous Lot # [id number] Expiration date: 07/22/[address] [facility]: [id number] Site: Left arm Dr. Jade present in clinic at time of injection. The date due for the next injection is in 6 months. On or after 02/25/2024. SEJAL: 03/04/2023 NOV: 11/25/2023 Insurance: [facility]-No PA Required. DX: M81.0 CPT: J0897 DXA: 07/21/2023 (T-Score -2.5 LS) Labs: 03/11/2023 Vit. D 27.8 Patient education was given by nurse. Patient tolerated injection well, in NAD and no reactions noted. Medication supplied by [facility] [employer]. Bertha Carnes RN documented in this encounter [facility] 08-03-2023 Miscellaneous Notes Patient will stop Tymlos [...] seven days of my reply. See the [employer] message reply for my assessment and plan. [...] be self administered. documented in this encounter [facility] 07-21-2023 Note HNO ID: [id number] Author: Aleksander Hudson RT(Alee) Service: ? Author [...] RT Daljit(R) July 21, 2023 9:04 AM [facility] 07-21-2023 History of Presen t illness Narrative [...] 2023 9:04 AM documented in this encounter [facility] 07-02-2023 Miscellaneous Notes Closed. documented in this encounter [facility] 07-02-2023 Miscellaneous Notes Closed. documented in this encounter [facility] 03-18-2023 Miscellaneous Notes Received a faxed notification from [employer] that patient has been APPROVED FOR TYMLOS. Effective: 03/13/23---03/13/24. Closed. documented in this encounter [facility] 03-04-2023 Note HNO ID: [id number] Author: Joceline Jade MD Service: ? Author Type: Physician Type: Progress Notes Filed: 03/04/2023 2:39 PM Note Text: OSTEOPOROSIS AND METABOLIC BONE DISEASE Gender: female Ethnicity: Age: [age] year old Referring Physician: Drew Corey [address] [facility] [id number] Chief Complaint: Osteoporosis HPI: She was dx in 2016, when she had a compression fracture in L1/l3 Last compression fracture (T9) was in Dec 2021 She moved here from [place] TREATMENTS: Medications: Tymlos 80 mcg daily She [...] Return Visit: June 2023 Joceline Jade MD [facility] 03-04-2023 Miscellaneous Notes Hard Copy RX for Tymlos faxed to [facility] at , Transmission ok [facility] CLOSED documented in this encounter [facility] 03-04-2023 Instructions Joceline Jade MD - 03/04/2023 1:35 PM EDT Please see if you had vitamin D and BMP (kidney function) Notify me via my chart. Do DXA scan in June 2023 Follow up with me in June or Jul 2023 documented in this encounter [facility] 03-04-2023 History of Presen t illness Narrative OSTEOPOROSIS AND METABOLIC BONE DISEASE Gender: female Ethnicity: Age: [age] year old Referring Physician: Drew Corey [address] [facility] [id number] Chief Complaint: Osteoporosis HPI: She was dx in 2016, when she had a compression fracture in L1/l3 Last compression fracture (T9) was in Dec 2021 She moved here from [place] TREATMENTS: Medications: Tymlos 80 mcg daily She [...] Joceline Jade MD documented in this encounter [facility] documented in this encounter [facility]* Diagnosis Osteoporosis without current pathological fracture, unspecified osteoporosis type- Primary [facility] Diagnosis Age-related osteoporosis without current pathological fracture- Primary Senile osteoporosis [facility]* Diagnosis Osteoporosis without current pathological fracture, unspecified osteoporosis type- Primary documented in [facility]* Diagnosis Osteoporosis without current pathological fracture, unspecified osteoporosis type documented in this encounter [facility] Medications Administered Section Inactive Administered Medications - [...] or prosecute any alcohol or drug abuse patient.[facility] the event this information is protected by the Federal Confidentiality of Alcohol and Drug Abuse Patient Records regulations: The Federal rules restrict any use of the information to criminally investigate or prosecute any alcohol or drug abuse patient.[facility] the event this information is protected by the Federal Confidentiality of Alcohol and Drug Abuse Patient Records regulations: The Federal rules restrict any use of the information to criminally investigate or prosecute any alcohol or drug abuse patient.[facility] the event this information is protected by the Federal Confidentiality of Alcohol and Drug Abuse Patient Records regulations: The Federal rules restrict any use of the information to criminally investigate or prosecute any alcohol or drug abuse patient.[facility] the event this information is protected by the Federal Confidentiality of Alcohol and Drug Abuse Patient Records regulations: The Federal rules restrict any use of the information to criminally investigate or prosecute any alcohol or drug abuse patient.[facility] the event this information is protected by the Federal Confidentiality of Alcohol and Drug Abuse Patient Records regulations: The Federal rules restrict any use of the information to criminally investigate or prosecute any alcohol or drug abuse patient.[facility] the event this information is protected by the Federal Confidentiality of Alcohol and Drug Abuse Patient Records regulations: The Federal rules restrict any use of the information to criminally investigate or prosecute any alcohol or drug abuse patient.[facility] the event this information is protected by the Federal Confidentiality of Alcohol and Drug Abuse Patient Records regulations: The Federal rules restrict any use of the information to criminally investigate or prosecute any alcohol or drug abuse patient.[facility] Reason for Visit (unrecogniz ed section and [...] BE BASED ON THE PRIMARY CLINICAL RECORDS. [employer] [facility]. provides no warranty or guarantee of the accuracy or completeness of information in this document.
[2024-01-31] MEDS: Lactated Ringers 1,000 ML 15 ML IV ×2 (07:49→11:32)
--- NOTE | 2024-01-31 09:06 | PCM.HP.BLA ---
History and Physical Date of Admission: 01/31/24 Visit Reasons: GALLSTONES Chief Complaint: gallstones Is patient in pain?: Yes Allergies meperidine [From Demerol] Allergy (Intermediate, Verified 12/30/23 13:40) Vomiting Medications aspirin 81 mg tablet,delayed release (Adult Low Dose Aspirin) 81 mg PO DAILY 12/30/23 [History Confirmed 12/30/23] calcium carbonate 500 mg calcium (1,250 mg) chewable tablet (Calcium 500) 500 mg PO DAILY 12/30/23 [History Confirmed 12/30/23] cholecalciferol (vitamin D3) 25 mcg (1,000 unit) capsule 25 mcg PO DAILY 12/30/23 [History Confirmed 12/30/23] denosumab 60 mg/mL subcutaneous syringe (Prolia) 60 mg subcut [id number] 12/30/23 [History Confirmed 12/30/23] multivitamin 1 tab PO DAILY 12/30/23 [History Confirmed 12/30/23] omega-3 339mg-dha,epa 314mg-fish,krill 500mg-lutein,zeax 24mg capsule (Megared Advanced Total Body) cap PO 12/30/23 [History Confirmed 12/30/23] red yeast rice 600 mg capsule 600 mg PO DAILY 12/30/23 [History Confirmed 12/30/23] bmylyuvz-ohazkv-alm-gox-xdv-bjwi-horse 100 mg-100 mg-100 mg-125 mg tab (Tumersaid) tab PO 12/30/23 [History Confirmed 12/30/23] zinc gluconate 50 mg tablet 50 mg PO DAILY 12/30/23 [History Confirmed 12/30/23] PFSH Medical History (Updated 12/30/23 @ 13:36 by Taryn Gates) Osteoporosis Surgical History (Updated 12/30/23 @ 13:37 by Taryn Gates) H/O oophorectomy H/O: hysterectomy Family History (Updated 12/30/23 @ 13:37 by Taryn Gates) Mother Arthritis Social History (Updated 12/30/23 @ 13:39 by Taryn Gates) Smoking Status: Never smoker alcohol intake: current alcohol intake frequency: a few times a week substance use type: does not use HPI HPI HPI: 58-year-old female is referred by Dr. Destiny Trevino for surgical consultation regarding gallstone disease and a written copy my surgical consult and recommendations will return to her. The patient did have at the [facility] on December 06, 2023 and abdominal ultrasound limited to the right upper quadrant demonstrating a normally distended gallbladder with a wall of 1.3 mm. No pericholecystic fluid and negative Hendricks sign. Multiple gallstones identified. Common bile duct measures 4.8 mm. Pancreas is felt to be unremarkable. It is of additional note that laboratory as of December 01, 2023 demonstrates a glucose of 85 and a BUN of 21 and a creatinine of 0.69 with an AST of 23 and alkaline phosphatase low at 41 and ALT 24 and a total bilirubin of 0.3. White blood cell count was 5.2 hemoglobin 12.9 hematocrit 41.2 platelet count 333,000. Lipase was 27. Patient had presented with the complaints of having eaten sauerkraut/tomato sauce and having abdominal pain that would last for approximately an hour. Very pleasant lady. From likely several years she has had repetitive bouts of epigastric right upper quadrant pain radiating to the right flank. This is postprandially. Recently it has been increasing in frequency. 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 Fortunately today she is not having any discomfort. She is retired. She does do yoga type exercises and walks frequently. She enjoys good health. She has had previous multiple BRAKE COUPLER DINKEY procedures with with laparoscopy and lysis of adhesions and interventional laparoscopic assisted hysterectomy. She has had multiple access sites at the umbilicus as well as lower abdominal port sites. ROS General General: No weight change, appetite, fatigue, colon cancer, breast cancer or weakness HEENT HEENT: No difficulty swallowing, eye injury, eye surgery, swollen glands or hoarseness Endo Endocrine: No thyroid disease, diabetes mellitus, thyroid cancer, Hair loss, heat intolerance or cold intolerance Skin Skin: No rash or changing moles Breast Breast: No left breast lump, right breast lump, nipple discharge, breast pain, abnormal mammogram, abnormal US or breast enlargement Musc Musculoskeletal: No back problems, arthritis, rheumatoid arthritis, gout or joint pain Cardio Cardiovascular: No murmur, pacemaker, heart disease, atrial fibrillation, high blood pressure, heart attack, heart stent, palpitations, shortness of breat with exertion or chest pain Psych Psychiatric: No depression, anxiety or hearing voices Resp Respiratory: No shortness of breath, No sleep apnea, No cough, No COPD, No asthma, No emphysema and No wheezing Gastro Gastrointestinal: No abdominal pain, No nausea or vomiting, No diarrhea, No constipation, No blood in stool, No acid reflux, No hemorrhoids, No ulcers, No gallbladder problem and No black,tarry stools Ayan Hematologic: No blood thinners, No blood disorders, No bleeding, No anemia and No blood clots Neuro Neurologic: No system reviewed and no additional complaints, except as documented, No as per HPI, No abnormal gait, No abnormal hearing, No abnormal movements, No abnormal speech, No behavioral changes, No burning sensations, No confusion, No convulsions, No disequilibrium, No dizziness, No localized weakness, No frequent falls, No headache(s), No lack of coordination, No loss of vision, No memory loss, No numbness, No other visual disturbances, No radicular pain, No restless legs, No sensory deficit, No syncope, No tingling, No tremor(s), No weakness and No other Exam Const General: cooperative, healthy appearing and comfortable [facility] Head: normal to inspection Eyes General: appearance normal, both eyes and all related structures Neck Neck: normal visual inspection Resp Effort & Inspection: normal respiratory effort Auscultation: clear to auscultation bilaterally Cardio Rate: regular rate Rhythm: regular rhythm GI Inspection: normal to inspection Palpation: soft and no hepatosplenomegaly Musc Cervical Spine: normal cervical lordosis Skin General: no rashes or lesions noted Neuro General: patient alert, patient awake and patient oriented x3 Extrem General: no calf tenderness Psych Appearance: grossly normal Assessment and Plan Assessment and Plan (1) Cholelithiasis with chronic cholecystitis: Status: Chronic Qualifiers: Biliary obstruction: without biliary obstruction Cholelithiasis location: gallbladder Qualified Code(s): K80.10 - Calculus of gallbladder with chronic cholecystitis without obstruction Plan: The patient presents with symptoms and presentation correlates well with chronic cholecystitis cholelithiasis. I do recommend to her laparoscopic cholecystectomy with selective cholangiography. I suspect I will make my initial incision at the superior aspect the umbilicus and using a sound technique because of the patient's previous multiple BRAKE COUPLER DINKEY procedures. I do anticipate cholangiography. In detail I have discussed the technique, benefit, risk, alternatives. She does have a trip planned. We will try to schedule her for her return. She has had an opportunity ask and have questions answered we will proceed as noted. I appreciate the opportunity of assisting with her surgical care Copy: Dr. Destiny Miller M.D., F.A.C.S. I have examined the patient and the H&P has been reviewed. There are no clinical changes since date of exam. Darío Miller M.D., F.A.C.S. Darío Miller M.D., F.A.C.S.
--- NOTE | 2024-01-31 09:06 | EX.PCM.DISCH ---
Discharge Instructions Procedure General Surgery Diet Discharge Diet: Light diet - advance as tolerated (if you have questions about your diet instructions, please talk to you doctor.) Activity Discharge Activity: May Not Drive (for 3-5 days or while taking narcotic pain medicine.) May shower in (days): 1 Lifting Restrictions: 10 pounds Dressing / Incision Call your doctor if your incision/area has: Continuous Slow Oozing, Sudden Increased Bleeding, Increased Pain/ Swelling, Increased Redness and Foul Smelling Discharge Call your doctor if you observe: Fever of 101 or Higher Suture Line Care: Avoid Pulling/Pushing and Avoid Pinching/Bending Additional Dressing/Incision Instructions:: Change or remove dressing in 4 days. Leave steri-strips in place for 1 week. Follow Up Care Please Follow Up With: Darío Miller MD When: Call [phone] to make an appointment to be seen in about 10 days. Test Results: Test results from this visit will be discussed in further detail at your follow-up appointment, if applicable. Discharge Plan Admission Attending Provider: Darío Miller Primary Care Provider: Destiny Trevino Discharge Orders/Prescriptions Prescriptions: No Action multivitamin Tablet 1 tab PO DAILY zinc gluconate 50 mg tablet 50 mg PO DAILY Prolia 60 mg/mL syringe 60 mg subcut [id number] red yeast rice 600 mg capsule 600 mg PO DAILY Rx Instructions: give with meal/snack Megared Advanced Total Body [phone] mg capsule 1 cap PO DAILY calcium carbonate [Calcium 500] 500 mg calcium (1,250 mg) tablet,chewable 500 mg PO DAILY cholecalciferol (vitamin D3) 25 mcg (1,000 unit) capsule 25 mcg PO DAILY Tumersaid [phone] mg tablet 1 tab PO DAILY aspirin [Adult Low Dose Aspirin] 81 mg tablet,delayed release (DR/EC) 81 mg PO DAILY Other Ambulatory Orders: 12 Lead EKG (Routine) Timeframe: 20240125 Location: None Selected Ordered By: Dr. Darío Miller Referrals / Follow Up: Destiny Trevino DO [Primary Care Provider] - Disposition Disposition (needs filled in before D/C Order can be placed): Home, Self Care
[2024-01-31] MEDS: Cefazolin 2 GM in 0.9% Normal Saline (100mL Bag) 100 ML IV (09:25)
--- NOTE | 2024-01-31 09:30 | GALL_PTH ---
PATHOLOGY RESULTS PATIENT: BRENT KIRK LOC: [facility] U#:[id number] AGE/SX: 58/F ROOM: RE01/31/[address]: Dr. Darío Miller MD : 1965 BED: DIS: 01/31/2024 SPEC #: [id number] RECD: 01/31/24 12:50 STATUS: GAYATHRI BONNER #: [id number] LUIS ANTONIO: 01/31/24 09:[address]: Darío Miller DEPT: SURGICAL PATHOLOGY RECD BY: Lalita Nichole ENTERED: 01/31/24 13:45 SP TYPE: DELORES WADDELL DR: Destiny Trevino DO Tissues: Gallbladder, NOS Procedures: Surgery Specimen Level III HEADER OPERATION: Laparoscopic, Cholecystectomy with IOC PRE-OP DIAGNOSIS: Cholelithiasis, with chronic cholecystitis TISSUE SUBMITTED: Gallbladder MICROSCOPIC DIAGNOSIS Gallbladder, cholecystectomy: Chronic cholecystitis and cholelithiasis. A benign lymph node. SJ:vin 02/02/2024 MICROSCOPIC DESCRIPTION Slides are reviewed. GROSS DESCRIPTION Received is one container labeled with the patient's name and designated gallbladder. The specimen consists of a gallbladder measuring 9.5 x 3.5 x 3.0 cm. The external surface is smooth and glistening. Focally, it is granular, hemorrhagic and contains cautery artifact. The lumen of the gallbladder contains greenish mucoid bile and multiple calculi and fragments of calculi that are light-mckeon to green in color ranging in size from 0.2 to 1.5 cm. The mucosa is bile-stained and without any mass lesions. The gallbladder wall averages 0.1 cm in average thickness and is free of mass lesions. Deputy Court Clerk sections of the gallbladder and the cystic duct at margin of resection are submitted in one cassette. / AM: 01/31/24 More sections are submitted in cassette 2, cystic duct. / AM:vin 02/01/2024 TC:3 CPT: 24538
--- NOTE | 2024-01-31 09:45 | RAD_ITS ---
STUDY: INTRAOPERATIVE CHOLANGIOGRAM. REASON FOR EXAM: Female, 58 years old. LAP ISRA WITH IOC FLUOROSCOPY TIME (if supplied): ( 33.2 seconds ) minutes/seconds. 36.06 mGy TECHNIQUE: An intraoperative cholangiogram was performed by the surgeon. Imaging was submitted. COMPARISON: None. FINDINGS: The common bile duct is slightly dilated. No intraluminal filling defect is seen. There is free flow of contrast into the duodenum. RAD/Cholangiogram/ O R,Initial IMPRESSION: Mildly dilated common bile duct. No intraluminal filling defect is seen. Electronically Signed: Jorgito Newton MD at 14:18 EDT ,
[2024-01-31] MEDS: Bupivacaine Mpf 0.5% 30 ML VIAL (10:24)
--- NOTE | 2024-01-31 10:30 | PCM.OPRPT ---
Report of Operation Date of Procedure: 01/31/24 Pre-Operative Diagnosis: Chronic cholecystitis cholelithiasis Post-Operative Diagnosis: Same Surgery/Procedure Performed:: Laparoscopic cholecystectomy with cholangiograms Description of Surgical Findings:: Timeout informed consent was obtained. 58-year-old female was taken to the op room placed on the table underwent general endotracheal intubation esthesia. Ancef 2 g were given intravenously preoperatively. The abdomen sterilely prepped and draped. 0.5% Marcaine was used as a local anesthetic. Throughout the procedure a total of 30 cc was used. Skin sites were preanesthetized. A vertical supraumbilical incision was created holding sutures of 0 Vicryl placed sharp dissection carried down through this fascia and the peritoneum was identified grasped and opened directly. No adhesions at that level however there was evidence of adhesions from the umbilicus and inferiorly. A 12 mm trocar was inserted with no trauma and were secured with 0 Vicryl. The abdomen was insufflated with CO2 to a pressure of 10 mmHg pressure. Inspection revealed adhesions from the umbilicus to the pubis of omentum to the anterior abdominal wall. 5 mm trocars then placed in the epigastric mid right upper quadrant and lateral right upper quadrant. The gallbladder had multiple adhesions of omentum to it. These were bluntly and sharply dissected free. That allowed for then distraction of the gallbladder the infundibular area of the gallbladder was then bluntly dissected free until clearly the cystic artery and cystic duct were identified. The cystic artery was clipped twice proximally once distally prior to transecting it. Hem-o-toan clip was placed on the cystic duct incision made in the cystic duct and through a 14-gauge Angiocath cholangiogram catheter was inserted. Fluoroscopically controlled cholangiograms were obtained demonstrating normal ductal anatomy except for the common duct being somewhat large and intrahepatic ducts somewhat smaller. There is no evidence of any stones. The cholangiogram catheter was removed and a second Hem-o-toan clip was placed on the cystic duct stump prior to transecting it. Hem-o-toan clips were additionally used for hemostasis were indicated. The valve was dissected free from the liver bed using electrocautery. Was irrigated aspirated free. Slight amount of clot noted at the portal dissection. There is this was irrigated aspirated free. To absolutely assure hemostasis as the patient did have multiple small vessels I used hemoblast followed by fibular. Compression was placed. Inspection revealed no evidence of bleeding. The right upper quadrant irrigated and aspirated free of excess fluid. Gallbladder was placed in a retrieval bag and exited the umbilicus. Trocars were removed to the abdomen side deflated the CO2. The fascia at the gallbladder was approximated with a [id number] suture of 0 Vicryl. Skin edges approximated opted for Monocryl subdermal stitches. Steri-Strips Telfa OpSite dressings applied. Sponge and instrument and needle counts were reported the surgeon to be correct. Specimens gallbladder. Drains none. Blood loss minimal. The patient was taken to the recovery room in satisfied condition without apparent complication Darío Miller M.D., F.A.C.S. Surgeon: Darío Miller Type of Anesthesia: General and Local Anesthesiologist: Dylan Medina
== END 2024-01-31 13:36 | disposition home or self-care (01) ==
LOC: SDC 07:27 → AC 07:27
PROVIDERS: PCP Family Medicine; Referring Provider Surgery; Visit Provider Surgery
PROC: (CPT 47610; principal; 2024-01-31 09:10)
DX: K80.10 Calculus of gallbladder with chronic cholecystitis without obstruction (principal); Z79.82 Long term (current) use of aspirin; Z90.710 Acquired absence of both cervix and uterus
CPT/HCPCS: 47563; 00790; 36415; 74300; 76000; 80048; 85027; 88304; 93005; J7120; J2405

== ENCOUNTER → 2024-06-13 | Outpatient (CLI) | payer BC, SELFPAY ==
--- NOTE | 2024-06-13 13:29 | BI_ITS ---
MAMMOGRAPHY - BILATERAL SCREENING REASON FOR EXAM: Female, 58 years old. Routine annual screening examination. PERTINENT HISTORY: Non-contributory. Prior left breast biopsy. TECHNIQUE: Digital bilateral breast jada (3D mammographic acquisition) in the CC and MLO projections. 2-D mediolateral oblique (MLO) and craniocaudad (CC) views of both breasts were obtained. CAD: Full Field Digital Mammography with Computer Added Detection was performed. COMPARISON: Comparison is made with prior study dated June 04, 2023. FINDINGS: Breast Composition: There are scattered areas of fibroglandular density. There are no dominant masses or suspicious calcifications. No other significant abnormalities are identified. There has been no significant change since the prior study. BI/SCRN MAMM (CAD)W/JADA BILAT IMPRESSION: Stable bilateral screening mammogram. Yearly follow-up mammogram recommended. (A) ASSESSMENT CATEGORY: BIRADS Category 1: Negative. A letter regarding these results will be sent to the patient by the facility within 30 days. Approximately 10% of breast cancers are not detected by mammography. A normal mammogram should not delay biopsy of a clinically suspicious abnormality. [id number] Electronically Signed: Jorgito Newton MD at 14:20 EDT ,
== END | disposition home or self-care (01) ==
LOC: OPBI 13:28
PROVIDERS: PCP Family Medicine; Referring Provider Family Medicine; Visit Provider Family Medicine
DX: Z12.31 Encounter for screening mammogram for malignant neoplasm of breast (principal)
CPT/HCPCS: 77063; 77067

== ENCOUNTER 2024-10-09 10:00 | Outpatient (RCR) | payer BC, SELFPAY ==
--- NOTE | 2024-08-30 13:59 | HP.PTEVAL ---
Patient's Visit Information Visit Information Visit Information: BRENT KIRK is a 58 year old F referred to Physical Therapy by Leonardo Medeiros MD with a diagnosis of IT Band Syndrome. Date of Evaluation: 08/30/24 Physical Therapist: KAI Martinez Visit Plan Frequency: 2x /Week Duration: 2 Months Plan: +++Pt has OSTEOPOROSIS++++ 2X/ week for 4-8 weeks for IT BAND foam rolling, stretching, hip and core and knee strength with HEP.... Pt does do some squatting at home (assess to make sure she is doing the right form when ready) HEP: standing IT Band stretch and wall posture with standing Quad sets (TKE) Subjective Subjective: In the last few months she has bee having pain on the R lateral side of her knee. Dr Medeiros did some tests to rule out anything with the knee (no diagnostics) and ruled it IT band Syndrome. It bothers her if she sits for 45 min or longer. She can not get comfortable if she lays on either side so she sleeps on her back or stomach. Sometimes she is good on steps and sometimes not so good. It hurts to cross her legs. She has osteoporosis so she has back pain but it does not usually go down her leg. She has had multiple fx in back, ribs and sternum Pain R knee pain: Pain Intensity (Out of 10): 3 Objective Objective: Gait: Walks with knees bent and increase veering at times and decrease step length Stairs: up and down recip with 1 hand rail... she likes to keep her knees bent ascending the steps but when she does straighten them she will get the lateral knee pain on the R side of the knee. Pt has increase R lateral knee pain with figure 4 position. LE MMT: R hip flex 4-/5 and L 4/5 knee ext B 4/5 knee ext B 4/5 Supine hip abd 4/5 Prone hip ext 4/5 Pt is able to walk on heels and toes with some pain with toes up on the R lateral knee Palpation: tender over the R lateral knee IT Band insertion Pt has good B knee flexion B WNL Balance/Special Test Scores Lower Extremity Functional Score: 56 Goals Goal 1:: I HEP Goal Time Frame: 6-8 Weeks Goal 2:: Be able to sit for 45 min and stand up without having R lateral knee pain Goal Time Frame: 6-8 Weeks Goal 3:: Be able to sleep on her side at night without having R lateral knee pain Goal Time Frame: 6-8 Weeks Goal 4:: Be able to resume workouts without having pain Goal Time Frame: 6-8 Weeks Rehabilitation Potential Rehabilitation Potential: Good Anticipated Interventions Patient/Client Instruction: Educate patient on: Condition and Plan of Care For the Purpose of:: To decrease pain, To increase ROM, To improve nutrient delivery to tissue, To increase oxygenation perfusion, To improve muscle performance and motor function, To improve ability to perform ADL's, To increase tolerance to activity/condition/position, To improve performance and independence with ADL's, To decrease level of supervision to perform tasks, To improve ability of physical actions for home/community/work/leisure, To improve gait and locomotor functions, To improve health of tissue, To decrease soft tissue restriction, To increase flexibility/ROM, To improve endurance, To improve balance and To improve safety with gait Therapeutic Exercise to Include: Strength training, Endurance training, Balance training, Flexibilty training, Gait and locomotor training, Neuromotor development and Active ROM For the Purpose of:: To decrease pain, To increase ROM, To improve nutrient delivery to tissue, To increase oxygenation perfusion, To improve muscle performance and motor function, To improve ability to perform ADL's, To increase tolerance to activity/condition/position, To improve performance and independence with ADL's, To decrease level of supervision to perform tasks, To improve ability of physical actions for home/community/work/leisure, To improve gait and locomotor functions, To improve health of tissue, To decrease soft tissue restriction and To increase flexibility/ROM Functional Training to Include: Gait training For the Purpose of:: To improve gait and locomotor functions Text: Thank you for the opportunity to evaluate your patient. For Medicare and Medicare HMO plans, please review the plan of care and approve it. It will need to be FAXED BACK to us at [phone] for Medicare purposes. For Medicare only, by signing this I certify the plan of care. Please let me know if there are questions or concerns regarding this plan of care. Physician Signature: Date:
--- NOTE | 2024-10-09 10:59 | HP.PTDCSUM ---
Discharge Summary D/C summary: It has been my pleasure to treat BRENT KIRK referred by Leonardo Medeiros MD, with the diagnosis of IT Band Syndrome for a total of 7 visit(s). Discharge Date: 10/09/24 Please see the following information for a summary of their discharge status. Subjective Subjective: Pt feels pretty good. She knows now that she has to do her exercises everyday. She notices that if she skips a day she is stiffer and harder to get around. Towards evenings she is worse. She still can no lay on either side and has tried some pillows and it has not helped. She has used BioFreeze and it seems like it gives her some relief. She gets francheska if she walks on uneven surfaces. Pain R knee pain: Pain Intensity (Out of 10): 2 Overall Improvement % Improvement: 70 Objective Objective/Function: Gait: normal gait pattern Step: up and down recip with slight hesitation and weakness on the R compared to the L Goals Goal 1:: I HEP Goal Progress: Goal Met Goal 2:: Be able to sit for 45 min and stand up without having R lateral knee pain Goal Progress: Not Progressing Goal 3:: Be able to sleep on her side at night without having R lateral knee pain Goal Progress: Not Progressing Goal 4:: Be able to resume workouts without having pain Goal Progress: Progressing Plan Plan: DC PT to [facility] gym and home routine D/C Information Discharge Comments: DC PT to [facility] HEP d/c sentence: If there are questions or concerns regarding this patient's physical therapy, please feel free to call me at [phone]. Thank you for the referral of this patient. Sincerely, Anabel Bernabe, MPT Balance/Gait/Functional tests Balance/Special Test Scores Lower Extremity Functional Score: 61 Improvement % Improvement: 70
== END 2024-10-09 19:00 | disposition home or self-care (01) ==
LOC: PT 10:00
PROVIDERS: PCP Family Medicine; Visit Provider Family Medicine
DX: M76.30 Iliotibial band syndrome, unspecified leg (principal)
CPT/HCPCS: 97110; 97161; 97530

== ENCOUNTER 2024-12-06 11:10 | Outpatient (CLI) | payer BC, SELFPAY | END 2024-12-06 23:59 | disposition home or self-care (01) | LOC: MFPLAB 11:11 → LABSPEC 11:12 | PROVIDERS: PCP Family Medicine | DX: Z00.00 Encounter for general adult medical examination without abnormal findings (principal); N76.0 Acute vaginitis | CPT/HCPCS: 87086 ==

== ENCOUNTER → 2025-02-20 | Outpatient (CLI) | payer BC, SELFPAY ==
--- NOTE | 2025-02-20 12:56 | RAD_ITS ---
EXAM: XR Right Knee Complete, 4 or More Views CLINICAL INDICATION: ACUTE ON CHRONIC KNEE PAIN TECHNIQUE: Four or more views of the right knee. COMPARISON: No relevant prior studies available. FINDINGS: BONES/JOINTS: Mild tricompartmental degenerative change of the knee joint. No acute fracture. No dislocation. SOFT TISSUES: Unremarkable. RAD/Knee 4 or More Views IMPRESSION: Degenerative changes as above. Reading Location: [facility]
== END | disposition home or self-care (01) ==
LOC: MTRAD 12:45
PROVIDERS: PCP Family Medicine; Referring Provider Family Medicine; Visit Provider Family Medicine
DX: M25.569 Pain in unspecified knee (principal)
CPT/HCPCS: 73564

== ENCOUNTER → 2025-06-14 | Outpatient (CLI) | payer BC, SELFPAY ==
--- NOTE | 2025-06-14 12:33 | BI_ITS ---
EXAM: SCRN MAMM (CAD)W/JADA BILAT DATE: 06/14/2025 CLINICAL HISTORY: F, Age 59 y/o , SCREENING FOR BREAST CANCER TECHNIQUE: SCRN MAMM (CAD)W/JADA BILAT COMPARISON: Prior exam(s) were compared FINDINGS: TISSUE DENSITY: The breasts are heterogeneously dense, which may obscure small masses. Bilateral Breast Mammographic Findings: No suspicious masses, calcifications or other abnormalities are identified. BI/SCRN MAMM (CAD)W/JADA BILAT IMPRESSION: No mammographic evidence of malignancy in either breast. OVERALL FINAL ASSESSMENT BI-RADS 1: NEGATIVE. RECOMMENDATION: Routine annual follow-up in 1 Year A letter with findings and recommendations will be mailed to the patient. Reading Location: [id number]
== END | disposition home or self-care (01) ==
LOC: OPBI 12:32
PROVIDERS: PCP Family Medicine; Referring Provider Family Medicine; Visit Provider Family Medicine
DX: Z12.31 Encounter for screening mammogram for malignant neoplasm of breast (principal)
CPT/HCPCS: 77063; 77067

== ENCOUNTER → 2025-08-21 | Outpatient (CLI) | payer BC, SELFPAY ==
--- OUTSIDE RECORDS SUMMARY | 2025-08-10 09:27 | XMS RPT_ITS ---
Author Name Auto Generated Organization OHIP Care Team Providers Care Senior Solutions Engineer Name Role Phone JOCELINE JADE Referring Unavailable JOCELINE JADE Referring Unavailable JOCELINE JADE Attending Unavailable PROBLEMS DATE TYPE CONDITION / CODE ATTENDING STATUS [facility] 03/04/2023 Active Osteoporosis wit hout current pathological fracture, unspecified osteoporosis type / M81.0(ICD-10) NA Active [facility] 03/09/2025 Active Vitamin D defici ency / E55.9(ICD-10) NA Active [facility] 03/08/2025 Active Prolia Injection / UNK(Unknown) NA Active [facility] PROCEDURES No Procedure Records Found RESULTS BD DXA TRABECLR BONE SCORE (TBS) Observed: 08/10/2025 9:54 AM Status: F Source: [facility] * * *Final Report* * * DATE OF EXAM: Aug 10 2025 9:54AM WRB 0801 - BD DXA TRABECLR BONE SCORE (TBS) / PROCEDURE REASON: Osteoporosis without current pathological fracture, unspecified osteoporosis typ * * * * Physician Interpretation * * * * EXAMINATION: DXA BONE DENSITOMETRY BD DXA - AXIAL SKELETON, BD DXA TRABECLR BONE SCORE (TBS) PATIENT DEMOGRAPHICS: Age: 59 years, Gender: Female SCANNER INFORMATION: DXA Model: [employer] - [employer] C 50073 Date Scanned: 08/10/2025 9:54 AM CLINICAL HISTORY: DIAGNOSTIC Osteoporosis without current pathological fracture, unspecified osteoporosis type . RISK FACTORS FOR OSTEOPOROSIS AND ASSOCIATED FRACTURES REPORTED BY THIS PATIENT: Please refer to Bone Health Questionnaire in the EMR CURRENT THERAPY: Please refer to Bone Health Questionnaire in the EMR TECHNICAL LIMITATIONS: RESULTS: Lumbar spine (L1, L2, L3, L4): 0.804 g/cm2, T-score -2.2 , Z-score -0.8 Lumbar spine: 2022 : 0.777 g/cm2 No statistically significant change Left Femoral Neck: 0.589 g/cm2, T-score -2.3 , Z-score -1.0 Left Femoral Neck: 2022 : 0.610 g/cm2 No statistically significant change Left Total Hip: 0.702 g/cm2, T-score -2.0 , Z-score -1.0 Left Total Hip: 2022 : 0.689 g/cm2 No statistically significant change CHANGE IS STATISTICALLY SIGNIFICANT IN THE SPINE OR HIP IF GREATER THAN OR EQUAL TO 0.04 g/cm2 VERTEBRAL FRACTURE ASSESSMENT Not performed. TRABECULAR BONE ASSESSMENT TBS score: 1.227 Bone micro-architecture: Degraded (< or = 1.230) IMPRESSION: THE LOWEST T-SCORE IS -2.3 IN THE LEFT HIP 1) DIAGNOSIS (based on BMD alone): OSTEOPENIA Caution: Medical conditions other than osteoporosis may cause low bone density, such as osteomalacia or renal osteodystrophy. Clinical correlation is necessary. 2) FRACTURE RISK (Based on TBS adjusted FRAX): 10-year absolute fracture risk: - major osteoporotic fracture = 18 % - hip fracture = 3.2 % - A diagnosis of Osteoporosis, a 10 year probability of hip fracture greater than or equal to 3% or a 10 year probability of any major osteoporosis-related fracture greater than or equal to 20% should be considered for treatment. - DXA scanner generated FRAX calculations may slightly differ from online FRAX calculations due to differences in software versions. - All recommendations and calculations are to be considered as guidelines and should not replace sound clinical judgement - Caution: Fracture risk may be increased independent of BMD in patients with corticosteroid use, age greater than 65 years, or a history of prior fragility fracture. RECOMMENDATIONS: Follow-up in 2 years or as clinically indicated. Patients that are taking corticosteroids, are transplant recipients or have hyperparathyroidism should have annual follow-up. Follow-up scans should always be done on the same machine for accurate comparison. FOR MORE INFORMATION ABOUT DIAGNOSIS AND TREATMENT: [facility] Center for Osteoporosis and Metabolic Bone Disease:? www.ccf.org/arthritis/osteo National Osteoporosis Foundation:? www.nof.org International Society of Clinical Densitometry www.iscd.org Summer Babysitter: FREDERICK Transcribe Date/Time: Aug 12 2025 5:21P Dictated by : DOMINGO ABRAMS MD This examination was interpreted and the report reviewed and electronically signed by: DOMINGO ABRAMS MD on Aug 12 2025 5:23PM EST [id number] BD DXA - AXIAL SKELETON Observed: 2024 9:54 AM Status: F Source: [facility] * * *Final Report* * * DATE OF EXAM: Aug 10 2025 9:54AM CHRISTINE Drew - BD DXA - AXIAL SKELETON / PROCEDURE REASON: Osteoporosis without current pathological fracture, unspecified osteoporosis typ * * * * Physician Interpretation * * * * EXAMINATION: DXA BONE DENSITOMETRY BD DXA - AXIAL SKELETON, BD DXA TRABECLR BONE SCORE (TBS) PATIENT DEMOGRAPHICS: Age: 59 years, Gender: Female SCANNER INFORMATION: DXA Model: [employer] - [employer] C [id number] Date Scanned: 08/10/2025 9:54 AM CLINICAL HISTORY: DIAGNOSTIC Osteoporosis without current pathological fracture, unspecified osteoporosis type . RISK FACTORS FOR OSTEOPOROSIS AND ASSOCIATED FRACTURES REPORTED BY THIS PATIENT: Please refer to Bone Health Questionnaire in the EMR CURRENT THERAPY: Please refer to Bone Health Questionnaire in the EMR TECHNICAL LIMITATIONS: RESULTS: Lumbar spine (L1, L2, L3, L4): 0.804 g/cm2, T-score -2.2 , Z-score -0.8 Lumbar spine: 2022 : 0.777 g/cm2 No statistically significant change Left Femoral Neck: 0.589 g/cm2, T-score -2.3 , Z-score -1.0 Left Femoral Neck: 2022 : 0.610 g/cm2 No statistically significant change Left Total Hip: 0.702 g/cm2, T-score -2.0 , Z-score -1.0 Left Total Hip: 2022 : 0.689 g/cm2 No statistically significant change CHANGE IS STATISTICALLY SIGNIFICANT IN THE SPINE OR HIP IF GREATER THAN OR EQUAL TO 0.04 g/cm2 VERTEBRAL FRACTURE ASSESSMENT Not performed. TRABECULAR BONE ASSESSMENT TBS score: 1.227 Bone micro-architecture: Degraded (< or = 1.230) IMPRESSION: THE LOWEST T-SCORE IS -2.3 IN THE LEFT HIP 1) DIAGNOSIS (based on BMD alone): OSTEOPENIA Caution: Medical conditions other than osteoporosis may cause low bone density, such as osteomalacia or renal osteodystrophy. Clinical correlation is necessary. 2) FRACTURE RISK (Based on TBS adjusted FRAX): 10-year absolute fracture risk: - major osteoporotic fracture = 18 % - hip fracture = 3.2 % - A diagnosis of Osteoporosis, a 10 year probability of hip fracture greater than or equal to 3% or a 10 year probability of any major osteoporosis-related fracture greater than or equal to 20% should be considered for treatment. - DXA scanner generated FRAX calculations may slightly differ from online FRAX calculations due to differences in software versions. - All recommendations and calculations are to be considered as guidelines and should not replace sound clinical judgement - Caution: Fracture risk may be increased independent of BMD in patients with corticosteroid use, age greater than 65 years, or a history of prior fragility fracture. RECOMMENDATIONS: Follow-up in 2 years or as clinically indicated. Patients that are taking corticosteroids, are transplant recipients or have hyperparathyroidism should have annual follow-up. Follow-up scans should always be done on the same machine for accurate comparison. FOR MORE INFORMATION ABOUT DIAGNOSIS AND TREATMENT: [facility] Center for Osteoporosis and Metabolic Bone Disease:? www.ccf.org/arthritis/osteo National Osteoporosis Foundation:? www.nof.org International Society of Clinical Densitometry www.iscd.org Summer Babysitter: FREDERICK Transcribe Date/Time: Aug 12 2025 5:21P Dictated by : DOMINGO ABRAMS MD This examination was interpreted and the report reviewed and electronically signed by: DOMINGO ABRAMS MD on Aug 12 2025 5:23PM EST [id number] PROGRESS Observed: 08/10/2025 9:30 AM Status: COMPLETED Source: [facility] ID: [id number] Author: AMITA HUDSON RT(R) Service: ? Author Type: Technologist Type: Progress Notes Filed: 08/10/2025 09:40 Note Text: Radiology Service Progress Note PATIENT NAME: Brent Crowder DATE OF SERVICE: August 10, 2025 TIME: 9:32 AM PATIENT IDENTITY VERIFICATION COMPLETED USING TWO (2) IDENTIFIERS: Name and Date of confirmed by patient verbally. FALL SCREENING: Has the patient had 2 falls in the last year or 1 fall with injury or currently using an Ambulatory Assistive Device (Walker, Cane, Wheelchair, Crutches, etc.)? No PATIENT GENDER DATA: Assigned female at . status: : No status: NO. PATIENT RELEVANT IMPLANT DATA REVIEWED: Not Applicable PATIENT PRESENTS WITH AN IMPLANTABLE OR ATTACHED CRYSTAL SLICER: No RADIOLOGY DEPARTMENT: Bone Density PERIPHERAL IV DATA: Not applicable SIGNED BY: Amita Hudson, RT(R) August 10, 2025 9:32 AM RENAL FUNC 2000 PNL SERPL Collected: 9:52 AM Status: F Source: [facility] Order Comment: Specimen Type : BLOOD SPECIMEN Ordering Facility: [facility] Address: [address] [place] [address] TYPE CODE TESTS RESULT OUT OF RANGE REFERENCE UNITS LAB 1751-7(LOINC) Albumin SerPl-mCnc 4.4 3.9-4.9 g/dL LAB 01649-5(LOINC) Calcium SerPl-mCnc 9.7 8.5-10.2 mg/dL LAB 2777-1(LOINC) Phosphate SerPl-mCnc 3.1 2.7-4.8 mg/dL LAB 2345-7(LOINC) Glucose SerPl-mCnc 95 74-99 mg/dL Result Comment: The [place] Diabetes Association (ADA) provides guidance for cutoff values for fasting glucose and random glucose. The ADA defines fasting as no caloric intake for at least 8 hours. Fasting plasma glucose results between 100 to 125 mg/dL indicate increased risk for diabetes (prediabetes). Fasting plasma glucose results greater than or equal to 126 mg/dL meet the criteria for diagnosis of diabetes. In the absence of unequivocal hyperglycemia, results should be confirmed by repeat testing. In a patient with classic symptoms of hyperglycemia or hyperglycemic crisis, random plasma glucose results greater than or equal to 200 mg/dL meet the criteria for diagnosis of diabetes. Reference: Standards of Medical Care in Diabetes 2016, [place] Diabetes Association. Diabetes Care. 2016.39(Suppl 1). LAB 3094-0(LOINC) BUN SerPl-mCnc 22 High 7-21 mg/ dL LAB 2160-0(LOINC) Creat SerPl-mCnc 0.73 0.58-0.96 mg/dL LAB 2951-2(LOINC) Sodium SerPl-sCnc 141 136-144 mmol/L LAB 2823-3(LOINC) Potassium SerPl-sCnc 4.6 3.7-5.1 mmol/L LAB 2075-0(LOINC) Chloride SerPl-sCnc 102 98-107 mmol/L LAB 2028-07(LOINC) CO2 SerPl-sCnc 28 22-30 mmo l/L LAB 00467-7(LOINC) Anion Gap SerPl-sCnc 11 8-15 mmol/L LAB 70784-1(LOINC) Creatinine + eGFR Pnl SerPlBld 94 >=60 mL/min/1 .73m??? Result Comment: Estimated Gl omerular Filtration Rate (eGFR) is calculated using the 2020 CKD-EPI creatinine equation. This equation utilizes serum creatinine, sex, and age as parameters. The creatinine assay has traceable calibration to isotope dilution-mass spectrometry. Refer to KDIGO guidelines for clinical interpretation. In patients with unstable renal function, e.g. those with acute kidney injury, the eGFR may not accurately reflect actual GFR. Performed By: #### [id number] # ### [facility] CLIA [id number] [address] [place] [address] OF NANDA 25(OH)D3 [facility] Collected: 03/09/20 9:52 AM Status: F Source: [facility] Order Comment: Specimen Type : BLOOD SPECIMEN Ordering Facility: [facility] Address: [address] [place] [address] TYPE CODE TESTS RESULT OUT OF RANGE REFERENCE UNITS LAB 1989-01([facility]) 25(OH)D3 [facility] 59.3 31.0-80.0 ng/mL Result Comment: Classificati on of 25 OH Vitamin D status: Deficiency/Insufficiency: < or = 30 ng/ml. Sufficiency/Optimal Levels: 31-80 ng/mL Toxicity: > 100 ng/mL. Test performed by chemiluminescent immunoassay. Performed By: #### 1989-3 ## ## [facility] CLIA [id number] [address] [place] [address] STATES OF [place] PROGRESS Observed: 03/08/2025 1:54 PM Status: COMPLETED Source: [facility] HNO ID: [id number] Author: BERTHA CARNES RN Service: ? Author Type: Registered Nurse Type: Progress Notes Filed: 03/08/2025 14:00 Note Text: The patient is here for an injection of Prolia Dose: 60 mg Route: Subcutaneous Lot# [id number] Expiration date 05/21/[address] [facility]: 41866-924-19 Given without incident. Site: left arm Dr. Jade present in clinic at time of injection. The date due for the next injection is in 6 months, on or after 09/07/25. Last injection: 09/05/24 SEJAL: 11/25/23 NOV: Today Insurance: Rossy DAWSON/AYSE [facility] not Required Labs: 11/26/23 Calcium 9.1, Vitamin D 38.0 DX: M81.0 CPT: J0897 DXA: 07/21/23 (TScore: -2.5 LS) Patient education was given by nurse. Patient tolerated Injection well, in NAD and no reactions noted. Medication supplied by [facility]. Bertha Carnes RN CNOV Observed: 03/08/2025 1:40 PM Status: COMPLETED Source: [facility] Office Visit (ENDMED) BRENT CROWDER ([id number]) 1965 F Date Time Provider Department 03/08/25 1:40 PM JOCELINE JADE During your visit today, we recorded the following information about you: Pulse Respiration Blood pressure Weight 61/minute 16/minute 122/84 61.6 kg Height 1.645 m Joceline Jade MD 03/08/2025 2:36 PM Signed OSTEOPOROSIS FOLLOW UP Chief Complaint: Osteoporosis HPI: She was dx in 2016, when she had a compression fracture in L1/l3 Last compression fracture (T9) was in Dec 2021. She moved here from [place] No fractures since last visit TREATMENTS: Medications: Tymlos 80 mcg daily She started Tymlos in summer 2020 and continued it until 2022 Current treatment: Prolia 60 mg Q 6 months Calcium: Supplement: Dose: 1000 mg Vitamin D: 2000 international unit(s) daily Multivitamin: No She takes turmeric, zinc, red yeats rice and collagen No interval fractures She denies falls BONE DENSITY RESULTS: DXA- June 2023 OP RISK FACTORS: Height: loss: No Weight [...] Exercise: moderate regular exercise program She does daily exercises thru an ann She also does yard work REVIEW OF SYSTEMS: Answers submitted by the patient for this visit: Core Review of Systems (Submitted on 03/01/2025) Fever : No Night sweats: No Recent unintentional weight change: No Nasal Congestion: No Hearing Loss: No Vision Disturbance: No A cough: No Difficulty Breathing?: No Chest pain: No Irregular heartbeat: No Leg Swelling: No Nausea: No Diarrhea: No Black tarry stools: No Difficulty Urinating?: No Awaken at Night More Than Once to Urinate?: No Joint pain or stiffness: Yes Muscle aches: No Leg or Foot Discomfort at Night?: Yes A rash: No Dizziness: No Headaches: No Memory Loss: No Seizures: No PAST MEDICAL HISTORY Diagnosis Date Osteoporosis PAST SURGICAL HISTORY Procedure Laterality Date HYSTERECTOMY HX Physical Exam: Blood pressure 122/84, pulse 61, resp. rate 16, height 164.5 cm (5' 4.76), weight 61.6 kg (135 lb 12.9 oz), SpO2 99%. GENERAL: alert and oriented X 3, no acute distress EYES: anicteric sclera NECK: Neck supple, thyroid symmetric, normal size HEART: RRR with normal S1 and S2 ,no murmurs LUNGS: Clear to auscultation.no wheezing NEURO: Awake, alert and oriented x 3, [...] deficiency PLAN: She was on Tymlos from 0633-0160 Subsequently, based on her T scores, I switched her to Prolia in Jul 2023 Update a vitamin D level Also check calcium level Radiology: update Bone Density in June 2025 I will send patient a message in my chart once the lab results become available Return Visit:1 year Joceline Jade MD Allergies As of Date: 03/08/2025 Noted Allergy Reaction MEPERIDINE 11/22/2005 11 - Vomiting Date Reviewed: 03/08/2025 Reviewed by: Bertha Carnes RN - Fully Assessed Reason for Visit: Osteoporosis [773] Primary Visit Diagnosis:Osteoporosis without current pathological fracture, unspecified osteoporosis type [M81.0] Other Visit Diagnosis:Vitamin D deficiency [E55.9] Order(s):VITAMIN D 25 HYDROXY [SQVITD] Order #: [id number] FUTURE RENAL FUNCTION PANEL [SQRFP] Order #: [id number] FUTURE DXA-AXIAL SKELETON [0244519] Order #: [id number] FUTURE BD DXA TRABECULAR BONE SCORE (TBS) [5617116] Order #: [id number] FUTURE Problem List As Of Date 03/08/2025 Noted Resolved Osteoporosis without current pathological fract*03/04/2023 Disposition: Return in about 1 year (around 03/08/2026). Follow-up and Disposition History for Encounter Date Provider Department Center 03/08/2025 [id number], [facility] Encounter Status:Closed by JOCELINE JADE on 03/08/25 CNOV Observed: 03/08/2025 1:40 PM Status: COMPLETED Source: [facility] REAGANBRENT ([id number]) 1965 F Date Time Provider Department 03/08/25 1:40 PM NURSE ANDREEA LACEY During your visit today, we recorded the following information about you: Bertha Carnes RN 03/08/2025 2:00 PM Signed The patient is here for an injection of Prolia Dose: 60 mg Route: Subcutaneous Lot# [id number] Expiration date 05/21/[address] [facility]: 76493-884-53 Given without incident. Site: left arm Dr. Jade present in clinic at time of injection. The date due for the next injection is in 6 months, on or after 09/07/25. Last injection: 09/05/24 SEJAL: 11/25/23 NOV: Today Insurance: Rossy DAWSON/BS [facility] not Required Labs: 11/26/23 Calcium 9.1, Vitamin D 38.0 DX: M81.0 CPT: J0897 DXA: 07/21/23 (TScore: -2.5 LS) Patient education was given by nurse. Patient tolerated Injection well, in NAD and no reactions noted. Medication supplied by [facility]. Bertha Carnes RN Allergies As of Date: 03/08/2025 Noted Allergy Reaction MEPERIDINE 11/22/2005 11 - Vomiting Date Reviewed: 03/08/2025 Reviewed by: Bertha Carnes RN - Fully Assessed Reason for Visit: Prolia Injection [Other] Primary Visit Diagnosis:Osteoporosis without current pathological fracture, unspecified osteoporosis type [M81.0] Order(s):[] denosumab 60 mg injection (PROLIA)Disp: Rfl: Problem List As Of Date 03/08/2025 Noted Resolved Osteoporosis without current pathological fract*03/04/2023 Prescriptions ordered this encounter Disp Refills Start End DENOSUMAB 60 MG/ML SUBCUTANEOUS SYRI* 03/08/2025 03/08/2025 Route: SUBCUTANEOUS Encounter Status:Closed by BERTHA CARNES on 03/08/25 PROGRESS Observed: 03/08/2025 1:35 PM Status: COMPLETED Source: [facility] ID: [id number] Author: JOCELINE JADE MD Service: ? Author Type: Physician Type: Progress Notes Filed: 03/08/2025 14:36 Note Text: OSTEOPOROSIS FOLLOW UP Chief Complaint: Osteoporosis HPI: She was dx in 2016, when she had a compression fracture in L1/l3 Last compression fracture (T9) was in Dec 2021. She moved here from [place] No fractures since last visit TREATMENTS: Medications: Tymlos 80 mcg daily She started Tymlos in summer 2020 and continued it until 2022 Current treatment: Prolia 60 mg Q 6 months Calcium: Supplement: Dose: 1000 mg Vitamin D: 2000 international unit(s) daily Multivitamin: No She takes turmeric, zinc, red yeats rice and collagen No interval fractures She denies falls BONE DENSITY RESULTS: DXA- June 2023 OP RISK FACTORS: Height: loss: No Weight [...] Exercise: moderate regular exercise program She does daily exercises thru an ann She also does yard work REVIEW OF SYSTEMS: Answers submitted by the patient for this visit: Core Review of Systems (Submitted on 03/01/2025) Fever : No Night sweats: No Recent unintentional weight change: No Nasal Congestion: No Hearing Loss: No Vision Disturbance: No A cough: No Difficulty Breathing?: No Chest pain: No Irregular heartbeat: No Leg Swelling: No Nausea: No Diarrhea: No Black tarry stools: No Difficulty Urinating?: No Awaken at Night More Than Once to Urinate?: No Joint pain or stiffness: Yes Muscle aches: No Leg or Foot Discomfort at Night?: Yes A rash: No Dizziness: No Headaches: No Memory Loss: No Seizures: No PAST MEDICAL HISTORY Diagnosis Date Osteoporosis PAST SURGICAL HISTORY Procedure Laterality Date HYSTERECTOMY HX Physical Exam: Blood pressure 122/84, pulse 61, resp. rate 16, height 164.5 cm (5' 4.76), weight 61.6 kg (135 lb 12.9 oz), SpO2 99%. GENERAL: alert and oriented X 3, no acute distress EYES: anicteric sclera NECK: Neck supple, thyroid symmetric, normal size HEART: RRR with normal S1 and S2 ,no murmurs LUNGS: Clear to auscultation.no wheezing NEURO: Awake, alert and oriented x 3, [...] deficiency PLAN: She was on Tymlos from 0798-8622 Subsequently, based on her T scores, I switched her to Prolia in Jul 2023 Update a vitamin D level Also check calcium level Radiology: update Bone Density in June 2025 I will send patient a message in my chart once the lab results become available Return Visit:1 year MD MERCEDES Sun Observed: 03/02/2025 12:00 AM Status: COMPLETED Source: [facility] Telephone ([employer]) REAGANBRENT Lisa ([id number]) 1965 F Date Time Provider Department 03/02/25 JOCELINE JADE During your visit today, we recorded the following information about you: Cecilia Garnica RN 03/02/2025 9:32 AM Signed Patient is scheduled for a Prolia Injection on 03/08/25 at 1:[address] CAM order accordingly. Thank you. Joceline Jade MD 03/02/2025 10:32 AM Signed Order placed Joceline Jade MD Allergies As of Date: 03/02/2025 Noted Allergy Reaction MEPERIDINE 11/22/2005 11 - Vomiting Date Reviewed: 09/05/2024 Reviewed by: Cecilia Garnica RN - Fully Assessed Reason for Visit: CAM Order Request [Other] Facility-Administered Medications as of 03/02/2025 - denosumab 60 mg injection (PROLIA) Problem List As Of Date 03/02/2025 Noted Resolved Osteoporosis without current pathological fract*03/04/2023 Encounter Status:Closed by JOCELINE JADE on 03/02/25 CNOV Observed: 09/05/2024 10:30 AM Status: COMPLETED Source: [facility] Office Visit (ENDMED) BRENT CROWDER ([id number]) 1965 F Date Time Provider Department 09/05/24 10:30 AM NURSE [facility] During your visit today, we recorded the following information about you: Cecilia Garnica RN 09/05/2024 10:31 AM Signed The patient is here for an injection of Prolia Dose: 60 mg Route: Subcutaneous Lot# [id number] Expiration date 01/19/[address] [facility]: 32867-859-68 Given without incident. Site: left arm Dr. Steele present in clinic at time of injection. The date due for the next injection is in 6 months, on or after 03/06/25. Last injection: 02/25/24 SEJAL: 11/25/23 NOV: will need 02/2025. Patient was supposed to have an OV today with DR. Jade, but provider cancelled office hours today due to being out ill. Patient will reschedule for 02/2025 with next Prolia injection. Labs: 11/26/23 Calcium 9.1, Vitamin D 38.0 DX: M81.0 CPT: J0897 DXA: 07/21/23 (TScore: -2.5 LS) Patient education was given by nurse. Patient tolerated Injection well, in NAD and no reactions noted. Medication supplied by [facility] [employer] [facility]. Cecilia Garnica RN Allergies As of Date: 09/05/2024 Noted Allergy Reaction MEPERIDINE 11/22/2005 11 - Vomiting Date Reviewed: 09/05/2024 Reviewed by: Cecilia Garnica RN - Fully Assessed Reason for Visit: Prolia Injection [Other] Primary Visit Diagnosis:Osteoporosis without current pathological fracture, unspecified osteoporosis type [M81.0] Order(s):[] denosumab 60 mg injection (PROLIA)Disp: Rfl: Problem List As Of Date 09/05/2024 Noted Resolved Osteoporosis without current pathological fract*03/04/2023 Visit Notes: >> Cecilia Garnica RN Tue Sep 05, 2024 10:27 AM Status: Signed The patient is here for an injection of Prolia Dose: 60 mg Route: Subcutaneous Lot# [id number] Expiration date 01/19/[address] [facility]: 53837-111-56 Given without incident. Site: left arm Dr. Steele present in clinic at time of injection. The date due for the next injection is in 6 months, on or after 03/06/25. Last injection: 02/25/24 SEJAL: 11/25/23 NOV: will need 02/2025. Patient was supposed to have an OV today with DR. Jade, but provider cancelled office hours today due to being out ill. Patient will reschedule for 02/2025 with next Prolia injection. Labs: 11/26/23 Calcium 9.1, Vitamin D 38.0 DX: M81.0 CPT: J0897 DXA: 07/21/23 (TScore: -2.5 LS) Patient education was given by nurse. Patient tolerated Injection well, in NAD and no reactions noted. Medication supplied by [facility]. Cecilia Garnica RN Prescriptions ordered this encounter Disp Refills Start End DENOSUMAB 60 MG/ML SUBCUTANEOUS SYRI* 09/05/2024 09/05/2024 Route: SUBCUTANEOUS Encounter Status:Closed by CECILIA GARNICA on 09/05/24 CNPN Observed: 09/01/2024 12:00 AM Status: COMPLETED Source: [facility] Telephone (ENDMED) BRENT CROWDER ([id number]) 1965 F Date Time Provider Department 09/01/24 JOCELINE JADE During your visit today, we recorded the following information about you: Cecilia Garnica RN 09/01/2024 9:15 AM Signed Patient is scheduled for a Prolia Injection on 09/05/24 AT 10:[address] CAM order accordingly. Thank you. Joceline Jade MD 09/04/2024 12:03 PM Signed Order placed Joceline Jade MD Allergies As of Date: 09/01/2024 Noted Allergy Reaction MEPERIDINE 11/22/2005 11 - Vomiting Date Reviewed: 02/25/2024 Reviewed by: Bertha Carnes RN - Fully Assessed Reason for Visit: CAM Order Request [Other] Facility-Administered Medications as of 09/04/2024 - denosumab 60 mg injection (PROLIA) Problem List As Of Date 09/01/2024 Noted Resolved Osteoporosis without current pathological fract*03/04/2023 Encounter Status:Closed by JOCELINE JADE on 09/04/24 ALLERGIES DATE TYPE / CODE NAME / CODE REACTION SEVERITY SOURCE 11/22/2005 DRUG INGREDI/[id number](SN OMED CT) MEPERIDINE Vomiting [facility] ENCOUNTERS ADMIT/DISCHARGE ACCOUNT NUMBER ADMITTING ENCOUNTER CLASS LOC ATION SOURCE 08/10/2025 [id number] Ambulatory [facility] HospitalBuild ing:BONEWS [facility] 03/09/2025/ 5 [id number] [facility] 03/08/2025/ 5 [id number] Ambulatory [facility] HospitalBuild ing:ENMM [facility] 03/08/2025/ 5 [id number] Ambulatory [facility] HospitalBuild ing:ENMM [facility] 09/05/2024/ 4 [id number] [facility] PAYERS ENCOUNTER GUARANTOR PAYER SUBSCRIBER SOURCE 08/10/2025 Primary Insurance:BLUE CARD PPO OOSPolicy Number: [id number] Date:2577-31-97Brzu Name:Kathy LERNER: [id number] [place] [address] [facility] 03/09/2025 Primary Insurance:BLUE CARD PPO OOSPolicy Number: [id number] Date:1923-42-69Wdlg Name:Kathy LERNER: [id number] [address] [place], [place] [address] [place] [address] 03/08/2025 Primary Insurance:BLUE CARD PPO OOSPolicy Number: [id number] Date:8348-05-19Trve Name:Kathy LERNER: [id number] [address] [place], [place] [address] [place] [address] 03/08/2025 Primary Insurance:BLUE CARD PPO OOSPolicy Number: [id number] Date:0243-21-53Mmhi Name:Kathy LERNER: [id number] [address] [place], [place] [address] [place] [address] 09/05/2024 Primary Insurance:BLUE CARD PPO OOSPolicy Number: [id number] Date:3092-86-81Gytr Name:Kathy LERNER: [id number] [place] [address] [facility]
--- OUTSIDE RECORDS SUMMARY | 2025-08-10 09:27 | XMS RPT_ITS ---
Author Name Auto Generated Organization OHIP Care Team Providers Care Booking Agent Name Role Phone JOCELINE JADE Referring Unavailable JOCELINE JADE Referring Unavailable JOCELINE JADE Attending Unavailable PROBLEMS DATE TYPE CONDITION / CODE ATTENDING STATUS [facility] 03/04/2023 Active Osteoporosis wit hout current pathological fracture, unspecified osteoporosis type / M81.0(ICD-10) NA Active [facility] 03/09/2025 Active Vitamin D defici ency / E55.9(ICD-10) NA Active [facility] 03/08/2025 Active Prolia Injection / UNK(Unknown) NA Active [facility] PROCEDURES No Procedure Records Found RESULTS BD DXA TRABECLR BONE SCORE (TBS) Observed: 08/10/2025 9:54 AM Status: F Source: [facility] * * *Final Report* * * DATE [...] SCANNER INFORMATION: DXA Model: Ernst [employer] C 73076 Date Scanned: 08/10/2025 9:54 AM CLINICAL HISTORY: [...] INFORMATION ABOUT DIAGNOSIS AND TREATMENT: [facility] for Osteoporosis and Metabolic Bone Disease:? www.ccf.org/arthritis/osteo National Osteoporosis Foundation:? www.nof.org International Society of Clinical Densitometry www.iscd.org Director Of Clinical Services: FREDERICK Transcribe Date/Time: Aug 12 2025 5:21P Dictated by : DOMINGO ABRAMS MD This examination was interpreted and the report reviewed and electronically signed by: DOMINGO ABRAMS MD on Aug 12 2025 5:23PM EST [id number] BD DXA - AXIAL SKELETON Observed: 2024 9:54 AM Status: F Source: [facility] * * *Final Report* * * DATE [...] years, Gender: Female SCANNER INFORMATION: DXA Model: Lil Monkey [employer]t [employer] C 05847 Date Scanned: 08/10/2025 9:54 AM CLINICAL HISTORY: [...] FOR MORE INFORMATION ABOUT DIAGNOSIS AND TREATMENT: [facility] Osteoporosis and Metabolic Bone Disease:? www.ccf.org/arthritis/osteo National Osteoporosis Foundation:? www.nof.org International Society of Clinical Densitometry www.iscd.org Director Of Clinical Services: FREDERICK Transcribe Date/Time: Aug 12 2025 5:21P Dictated by : DOMINGO ABRAMS MD This examination was interpreted and the report reviewed and electronically signed by: DOMINGO ABRAMS MD on Aug 12 2025 5:23PM EST [id number] PROGRESS Observed: 08/10/2025 9:30 AM Status: COMPLETED Source: [facility] ID: [id number] Author: AMITA HUDSON RT(R) Service: ? Author [...] PATIENT PRESENTS WITH AN IMPLANTABLE OR ATTACHED SOLAR SALES ADVISOR: No RADIOLOGY DEPARTMENT: Bone Density PERIPHERAL IV DATA: Not applicable SIGNED BY: Amita Hudson, RT(R) August 10, 2025 9:32 AM RENAL FUNC 2000 PNL SERPL Collected: 9:52 AM Status: F Source: [facility] Order Comment: Specimen Type : BLOOD SPECIMEN Ordering Facility: [facility] Address: [address] [place] [address] TYPE CODE TESTS RESULT OUT OF RANGE REFERENCE UNITS LAB 1751-7(LOINC) Albumin SerPl-mCnc 4.4 3.9-4.9 g/dL LAB 64733-0(LOINC) Calcium SerPl-mCnc 9.7 8.5-10.2 mg/dL LAB 2777-1(LOINC) Phosphate SerPl-mCnc 3.1 2.7-4.8 mg/dL LAB 2345-7(LOINC) Glucose SerPl-mCnc 95 74-99 mg/dL Result Comment: The [place] Diabetes Association (ADA) provides guidance for cutoff [...] Standards of Medical Care in Diabetes 2016, [place] Diabetes Association. Diabetes Care. 2016.39(Suppl 1). LAB 3094-0(LOINC) BUN SerPl-mCnc 22 High 7-21 mg/ dL LAB 2160-0(LOINC) Creat SerPl-mCnc 0.73 0.58-0.96 mg/dL LAB 2951-2(LOINC) Sodium SerPl-sCnc 141 136-144 mmol/L LAB 2823-3(LOINC) Potassium SerPl-sCnc 4.6 3.7-5.1 mmol/L LAB 2075-0(LOINC) Chloride SerPl-sCnc 102 98-107 mmol/L LAB 2028-07(LOINC) CO2 SerPl-sCnc 28 22-30 mmo l/L LAB 05679-6(LOINC) Anion Gap SerPl-sCnc 11 8-15 mmol/L LAB 78133-2(LOINC) Creatinine + eGFR Pnl SerPlBld 94 >=60 [...] accurately reflect actual GFR. Performed By: #### 21814-4 # ### [facility] CLIA [id number] [address] [place] [address] OF NANDA 25(OH)D3 [facility] Collected: 03/09/20 9:52 AM Status: F Source: [facility] Order Comment: Specimen Type : BLOOD SPECIMEN Ordering Facility: [facility] Address: [address] [place] [address] TYPE CODE TESTS RESULT OUT OF RANGE REFERENCE UNITS LAB 1989-01([facility]) 25(OH)D3 [facility] 59.3 31.0-80.0 ng/mL Result Comment: Classificati on of 25 [place] Vitamin D status: Deficiency/Insufficiency: < or = 30 ng/ml. Sufficiency/Optimal Levels: 31-80 ng/mL Toxicity: > 100 ng/mL. Test performed by chemiluminescent immunoassay. Performed By: #### 1989-3 ## ## [facility] CLIA [id number] [address] [place] [address] [place] PROGRESS Observed: 03/08/2025 1:54 PM Status: COMPLETED Source: [facility] HNO ID: [id number] Author: BERTHA CARNES RN Service: ? Author Type: Registered Nurse Type: Progress Notes Filed: 03/08/2025 14:00 Note Text: The patient is here for an injection of Prolia Dose: 60 mg Route: Subcutaneous Lot# [id number] Expiration date 05/21/[address] [facility]: 70123-973-27 Given without incident. Site: left arm Dr. Jade present in clinic at time of injection. The date due for the next injection is in 6 months, on or after 09/07/25. Last injection: 09/05/24 SEJAL: 11/25/23 NOV: Today Insurance: Rossy DAWSON/AYSE [facility] not Required Labs: 11/26/23 Calcium 9.1, Vitamin D 38.0 DX: M81.0 CPT: J0897 DXA: 07/21/23 (TScore: -2.5 LS) Patient education was given by nurse. Patient tolerated Injection well, in NAD and no reactions noted. Medication supplied by [facility]. Bertha Carnes RN CNOV Observed: 03/08/2025 1:40 PM Status: COMPLETED Source: [facility] Office Visit (ENDMED) BRENT CROWDER ([id number]) 1965 F Date Time Provider Department 03/08/25 [...] in Dec 2021. She moved here from [place] No fractures since last visit TREATMENTS: Medications: [...] deficiency PLAN: She was on Tymlos from 9810-8144 Subsequently, based on her T scores, I [...] Order(s):VITAMIN D 25 HYDROXY [SQVITD] Order #: [id number] FUTURE RENAL FUNCTION PANEL [SQRFP] Order #: [id number] FUTURE DXA-AXIAL SKELETON [1680208] Order #: [id number] FUTURE BD DXA TRABECULAR BONE SCORE (TBS) [9810683] Order #: [id number] FUTURE Problem List As Of Date 03/08/2025 Noted Resolved Osteoporosis without current pathological fract*03/04/2023 Disposition: Return in about 1 year (around 03/08/2026). Follow-up and Disposition History for Encounter Date Provider Department Center 03/08/2025 [id number], [facility] Encounter Status:Closed by JOCELINE JADE on 03/08/25 CNOV Observed: 03/08/2025 1:40 PM Status: COMPLETED Source: [facility] REAGANBRENT ([id number]) 1965 F Date Time Provider Department 03/08/25 1:40 PM NURSE ANDREEA LACEY During your visit today, we recorded the following information about you: Bertha Carnes RN 03/08/2025 2:00 PM Signed The patient is here for an injection of Prolia Dose: 60 mg Route: Subcutaneous Lot# [id number] Expiration date 05/21/[address] [facility]: 85465-310-37 Given without incident. Site: left arm Dr. Jade present in clinic at time of injection. The date due for the next injection is in 6 months, on or after 09/07/25. Last injection: 09/05/24 SEJAL: 11/25/23 NOV: Today Insurance: Rossy DAWSON/BS [facility] not Required Labs: 11/26/23 Calcium 9.1, Vitamin D 38.0 DX: M81.0 CPT: J0897 DXA: 07/21/23 (TScore: -2.5 LS) Patient education was given by nurse. Patient tolerated Injection well, in NAD and no reactions noted. Medication supplied by [facility]. Bertha Carnes RN Allergies [...] Observed: 03/08/2025 1:35 PM Status: COMPLETED Source: [facility] ID: [id number] Author: JOCELINE JADE MD Service: ? Author Type: Physician Type: Progress Notes Filed: 03/08/2025 14:36 Note Text: OSTEOPOROSIS FOLLOW UP Chief Complaint: Osteoporosis HPI: She was dx in 2016, when she had a compression fracture in L1/l3 Last compression fracture (T9) was in Dec 2021. She moved here from [place] No fractures since last visit TREATMENTS: Medications: [...] deficiency PLAN: She was on Tymlos from 7988-0683 Subsequently, based on her T scores, I switched her to Prolia in Jul 2023 Update a vitamin D level Also check calcium level Radiology: update Bone Density in June 2025 I will send patient a message in my chart once the lab results become available Return Visit:1 year MD MERCEDES Sun Observed: 03/02/2025 12:00 AM Status: COMPLETED Source: [facility] Telephone ([employer]) REAGANBRENT Lisa ([id number]) 1965 F Date Time Provider Department 03/02/25 [...] Observed: 09/05/2024 10:30 AM Status: COMPLETED Source: [facility] Office Visit (ENDMED) BRENT CROWDER ([id number]) 1965 F Date Time Provider Department 09/05/24 10:30 AM NURSE [facility] During your visit today, we recorded the following information about you: Cecilia Garnica RN 09/05/2024 10:31 AM Signed The patient is here for an injection of Prolia Dose: 60 mg Route: Subcutaneous Lot# [id number] Expiration date 01/19/[address] [facility]: 42159-016-78 Given without incident. Site: left arm Dr. [...] no reactions noted. Medication supplied by [facility]. Cecilia Garnica RN Allergies As [...] Prolia Dose: 60 mg Route: Subcutaneous Lot# [id number] Expiration date 01/19/[address] [facility]: 27832-430-45 Given without incident. Site: left arm Dr. [...] Observed: 09/01/2024 12:00 AM Status: COMPLETED Source: [facility] Telephone (ENDMED) BRENT CROWDER ([id number]) 1965 F Date Time Provider Department 09/01/24 [...] / CODE REACTION SEVERITY SOURCE 11/22/2005 DRUG INGREDI/[id number](SN OMED CT) MEPERIDINE Vomiting [facility] ENCOUNTERS ADMIT/DISCHARGE ACCOUNT NUMBER ADMITTING ENCOUNTER CLASS LOC ATION SOURCE 08/10/2025 [id number] Ambulatory [facility] HospitalBuild ing:BONEWS [facility] 03/09/2025/ 5 [id number] [facility] 03/08/2025/ 5 [id number] Ambulatory [facility] HospitalBuild ing:ENMM [facility] 03/08/2025/ 5 [id number] Ambulatory [facility] HospitalBuild ing:ENMM [facility] 09/05/2024/ 4 [id number] [facility] PAYERS ENCOUNTER GUARANTOR PAYER SUBSCRIBER SOURCE 08/10/2025 Primary Insurance:BLUE CARD PPO OOSPolicy Number: [id number] Date:7891-61-71Djhy Name:Kathy LERNER: [id number] [place] [address] [facility] 03/09/2025 Primary Insurance:BLUE CARD PPO OOSPolicy Number: [id number] Date:4327-35-13Xdpp Name:Kathy LERNER: [id number] [address] [place], [place] [id number] [place] [address] 03/08/2025 Primary Insurance:BLUE CARD PPO OOSPolicy Number: [id number] Date:1743-25-76Aymm Name:Kathy LERNER: [id number] [address] [place], [place] [address] [place] [address] 03/08/2025 Primary Insurance:BLUE CARD PPO OOSPolicy Number: [id number] Date:2014-09-51Rmxr Name:Kathy LERNER: [id number] [address] [place], [place] [phone] [place] [address] 09/05/2024 Primary Insurance:BLUE CARD PPO OOSPolicy Number: [id number] Date:1091-44-09Imzr Name:Kathy LERNER: [id number] [place] [address] [facility]
[2025-08-21 12:22] LABS: Hematocrit 39.3 % (37-47); Hemoglobin 13.1 g/dL (12.0-15.0); Mean Corp Hgb Conc 33.3 g/dL (32-36); Mean Corpuscular Volume 91.4 fL (81-99); Mean Platelet Vol. 10.6 fl (6.2-12.0); Platelet Count 301 K/mm3 (150-450); RBC Distribution Width CV 13.2 % (11.6-14.6); RBC Distribution Width SD 44.7 fl (35.1-43.9); Red Blood Count 4.30 M/mm3 (4.2-5.4); White Blood Count 4.0 K/mm3 (4.4-11.0)
[2025-08-21 14:02] LABS: AST(SGOT) 25 U/L (<=31); Alanine Aminotransfer ALT/SGPT 20 U/L (<=34); Albumin, Serum 4.3 g/dL (3.4-4.8); Alkaline Phosphatase 46 U/L (35-104); Anion Gap 10 (5-15); BUN 23 mg/dL (4-19); BUN/Creat Ratio 30.8 RATIO (10-20); Calcium,Total 9.2 mg/dL (7.6-11.0); Carbon Dioxide 24.8 mmol/L (21.0-32.0); Chloride 105 mmol/L (98-108); Cholesterol 230 mg/dL (<=200); Globulin 2.5 g/dL (2.2-4.2); Glucose 78 mg/dL (70-99); Low Density Lipoprotein Calc. 140 mg/dL; Potassium 4.3 mmol/L (3.3-5.1); Triglycerides 59 mg/dL; Very Low Density Lipoprotein 12 mg/dL (5-40); cholesterol:hdl ratio screen 2.96
== END | disposition home or self-care (01) ==
LOC: MTLAB 09:12
PROVIDERS: PCP Family Medicine; Referring Provider Family Medicine; Visit Provider Family Medicine
DX: R53.83 Other fatigue (principal); Z13.220 Encounter for screening for lipoid disorders; Z13.1 Encounter for screening for diabetes mellitus
CPT/HCPCS: 36415; 80053; 80061; 83036; 84443; 85027